=== PATIENT | male | born 1940 | race Caucasian/White ===

== ENCOUNTER 2022-02-02 08:00 | Outpatient (CLI) | payer MEDICARE, SELFPAY ==
[2022-02-02 08:12] LABS: Hematocrit 41.2 % (37.0-53.0); Hemoglobin* 13.5 gm/dL (13.5-17.5); Mean Corpuscular HGB Conc 33 gm/dL (32-36); Mean Corpuscular Hemoglobin 29 pg (26-34); Mean Corpuscular Volume 89 fL (80-100); Platelet Count* 160 K/uL (140-440); Red Blood Count 4.61 m/uL (4.30-5.90); White Blood Count* 2.22 K/uL (4.50-11.00)
[2022-02-02 08:32] LABS: Slide Review Reflex No
[2022-02-02 13:39] LABS: Albumin* 3.7 g/dL (3.3-5.0)
[2022-02-02 13:40] LABS: Chloride* 108 mmol/L (96-114); Potassium* 4.3 mmol/L (3.6-5.1); Sodium* 139 mmol/L (135-149)
[2022-02-02 13:42] LABS: Bilirubin Total* 1.4 mg/dL (0.1-1.5); Carbon Dioxide* 27 mmol/L (20-32); Cholesterol* 205 mg/dL (90-199); Estimated Glomerular Filt Rate 75 ml/min; Total Protein* 6.4 g/dL (6.0-8.3)
[2022-02-02 13:43] LABS: Alanine Aminotransferase* 16 U/L (4-50); Alkaline Phosphatase* 57 U/L (40-150); Aspartate Amino Transferase* 22 U/L (12-35); Blood Urea Nitrogen* 21 mg/dL (7-30); Calcium* 9.4 mg/dL (8.4-10.6); Glucose* 105 mg/dL (60-115); HDL Cholesterol* 67 mg/dL (>=40); LDL Cholesterol Calculated 126 mg/dL (<100); Triglycerides* 58 mg/dL (40-149)
== END 2022-02-02 08:01 | disposition home or self-care (01) ==
PROVIDERS: PCP Family Medicine; Visit Provider Family Medicine
DX: Z00.00 Encounter for general adult medical examination without abnormal findings (principal); E78.5 Hyperlipidemia, unspecified; D72.819 Decreased white blood cell count, unspecified
CPT/HCPCS: 80053; 80061; 85027

== ENCOUNTER 2023-02-06 10:11 | Outpatient (CLI) | payer MEDICARE, SELFPAY | END 2023-02-06 10:12 | disposition home or self-care (01) | LOC: NFLDREF 02-07 15:12 | PROVIDERS: PCP Family Medicine; Referring Provider Family Medicine; Visit Provider Family Medicine | DX: Z00.00 Encounter for general adult medical examination without abnormal findings (principal); E78.5 Hyperlipidemia, unspecified; D72.819 Decreased white blood cell count, unspecified | CPT/HCPCS: 80053; 80061 ==

== ENCOUNTER 2023-03-27 16:26 | Outpatient (CLI) | payer MEDICARE, SELFPAY | END 2023-03-27 16:27 | disposition home or self-care (01) | LOC: LKVREF 16:30 | PROVIDERS: PCP Family Medicine; Visit Provider Family Medicine | DX: I48.91 Unspecified atrial fibrillation (principal) | CPT/HCPCS: 84443 ==

== ENCOUNTER 2023-04-24 08:45 | Outpatient (CLI) | payer MEDICARE, SELFPAY ==
[2023-04-24] MEDS: REGADENOSON 0.4 MG/5 ML SYRINGE IVP (10:25)
[2023-04-24] MEDS: SODIUM CHLORIDE 0.9 % (FLUSH) 10 ML SYRINGE IVF (10:25)
[2023-04-24 10:40] VITALS: BP 132/70; PULSE 91
--- NOTE | 2023-04-24 12:10 | W.PM.STED ---
Stress Test Note Date Date of test: 04/24/23 Providers Primary care provider: Quan Christian Stress test physician: Jose R Jiménez Stress Test Note Stress test ordered: Lexiscan Indication for test: New onset atrial fibrillation Stress test medicine: Lexiscan Results discussion: Patient is a very nice 83-year-old gentleman who presents for the above test. As ordered discussion the risks benefits side effects is undertaken he would like to proceed pretest EKG shows atrial fibrillation with rate of 76. No acute ST wave changes are noted. Standard nonwalking Lexiscan is done over 5 minute. Subjectively he was asymptomatic objectively no acute ST wave changes there is no dysrhythmias noted. Impression: Negative electrographic portion of Lexiscan, patient remained in controlled atrial fibrillation Follow up suggested: Await nuclear images which will be read by Cardiology clinical correlation with this will be needed. Patient left this testing facility back to baseline normal.
== END 2023-04-24 08:46 | disposition home or self-care (01) ==
LOC: STRESS 08:46
PROVIDERS: PCP Family Medicine; Visit Provider Family Medicine
DX: I48.91 Unspecified atrial fibrillation (principal)
CPT/HCPCS: 78452; 93016; 93017; A9500; J2785

== ENCOUNTER 2023-04-30 14:47 | Outpatient (CLI) | payer MEDICARE, SELFPAY | END 2023-04-30 14:48 | disposition home or self-care (01) | LOC: RAD 14:49 | PROVIDERS: PCP Family Medicine; Visit Provider Family Medicine | DX: I48.91 Unspecified atrial fibrillation (principal); I51.7 Cardiomegaly; I35.1 Nonrheumatic aortic (valve) insufficiency; I34.0 Nonrheumatic mitral (valve) insufficiency; I07.1 Rheumatic tricuspid insufficiency | CPT/HCPCS: 93306 ==

== ENCOUNTER 2024-01-31 07:58 | Outpatient (CLI) | payer MEDICARE, SELFPAY ==
--- OUTSIDE RECORDS SUMMARY | 2024-02-01 07:21 | XMS_ITS | Referral Summary ---
Author Organization [facility] Address [address] [place] [id number] Care Team Providers Care Informatics Coordinator Name Role Phone Clinic, [facility] Primary Care Provider Allergies No known active allergies Medications Medication Sig Dispensed Refills Start Date End Date Status Finasteride (PROSCAR PO) Take 5 mg by mouth daily Active Pravastatin Sodium (PRAVACHOL PO) Take 10 mg by mouth daily Active Cyanocobalamin (B-12) 2500 MCG TABS Take 2,500 mcg by mouth daily Active Cholecalciferol (VITAMIN D3 PO) Take 2,000 Units by mouth 2 times daily Active NONFORMULARY Take 375 mg by mouth 2 times daily Active Nutritional Supplements (GLA 250 PO) Take 300 mg by mouth 3 times daily Active NONFORMULARY Take 300 mg by mouth daily Active docusate sodium (COLACE) 100 MG capsuleIndications:Po st-operative state Take two tablets twice daily until you have a bowel movement, then take as needed for constipation. 30 capsule 0 04/30/2014 Active ASPIRIN PO Take 81 mg by mouth Active Active Problems Problem Noted Date Diagnosed Date Post-operative state 04/29/2014 Immunizations Name Administration Dates Next Due Influenza (High Dose) 3 valent vaccine 4(),04/30/2014 Social History Tobacco Use Types Packs/Day Years Used Date Smoking Tobacco: Former Cigarettes Q uit: 04/29/1969 Smokeless Tobacco: Never Alcohol Use Standard Drinks/Week Comments Yes 0 (1 standard drink = 0.6 oz pur e alcohol) occasional Adolescent Education Answer Date Record ed Getting School Help Needed Not on file 04/17 Sex and Gender Information Value Date Recorded Sex Assigned at Not on file Gender Identity Not on file Sexual Orientation Not on file Last Filed Vital Signs Vital Sign Reading Time Taken Comments Blood Pressure 130/83 02/03/2019 1:00 PM CDT Pulse 62 02/03/2019 1:00 PM CDT Temperature 36.7 ??C (98.1 ??F) 02/03/2019 1 0:26 AM CDT Respiratory Rate 16 02/03/2019 1:22 PM CDT Oxygen Saturation 98% 02/03/2019 1:2 2 PM CDT Inhaled Oxygen Concentration - - Weight 80.6 kg (177 lb 11.1 oz) 05/02/2014 7:00 AM CDT standing wt Height - - Body Mass Index - - Plan of Treatment Not on file Advance Directives For more information, please contact: [phone] * Full Code (Latest Code Status on File) Date Activated Date Inactivated Comments 04/30/2014 3:50 PM 02/03/2019 10:21 AM * Full Code Date Activated Date Inactivated Comments 04/29/2014 2:34 PM 04/30/2014 3:50 PM Care Teams Informatics Coordinator Relationship Specialty Start Date End Date [facility], [facility] [address] [place] [address] PCP - General 09/28/15
--- OUTSIDE RECORDS SUMMARY | 2024-02-01 07:21 | XMS_ITS | Clinical Summary ---
Author Organization [facility] Address [address] [place] [id number] Care Team Providers Care Checking Department Supervisor Name Role Phone Clinic, [facility] Primary Care Provider Allergies No known active [...] Influenza (High Dose) 3 valent vaccine 4(),04/30/2014 Family History Medical History Relation Comments Colon Cancer No family hx of Social History Tobacco Use Types Packs/Day Years [...] Advance Directives For more information, please contact: [phone] * Full Code (Latest Code Status on File) Date Activated Date Inactivated Comments 04/30/2014 3:50 PM 02/03/2019 10:21 AM * Full Code Date Activated Date Inactivated Comments 04/29/2014 2:34 PM 04/30/2014 3:50 PM Care Teams Checking Department Supervisor Relationship Specialty Start Date End Date Clinic, [facility] [address] [place] [address] PCP - General 09/28/15
--- OUTSIDE RECORDS SUMMARY | 2024-02-01 07:21 | XMS_ITS | Clinical Summary ---
Author Organization [facility] Address [place], [place] [address] Care Team Providers Care Youth Pastor Name Role Phone Quan Christian MD Primary Care Provider [phone] Active Problems Problem Noted Date Diagnosed Date Mixed hyperlipidemia 06/15/2023 HTN (hypertension) 06/15/2023 CASIE (obstructive sleep apnea) 06/15/2023 Permanent atrial fibrillation 06/15/2023 Encounters Date Type Department Care Team Description 01/22/2024 4:45 PM CDT - 01/22/2024 11:59 PM CDT Hospital Encounter [address] [place] [address] Cj Ribeiro MD Other nonspecific abnormal finding of lung field 01/22/2024 Travel 01/16/2024 Orders Only [address] [place] [address] Cj Ribeiro MD 1 scan: (1-Ord) diag order 01/08/2024 10:14 AM CDT - 01/08/2024 11:59 PM CDT Hospital Encounter [address] [place] [address] Cj Ribeiro MD Hx of malignant neoplasm of kidney; History of kidney cancer 01/08/2024 Travel from Last 3 Months Social History Tobacco Use Types Packs/Day Years Used Date Smoking Tobacco: Never Assessed Social Connections Answer Date Recorded Frequency of Communication with Friends and Fami ly Not on file 06/15/2023 Sex and Gender Information Value Date Recorded Sex Assigned at Not on file Gender Identity Not on file Sexual Orientation Not on file Plan of Treatment Upcoming Encounters Date Type Department Care Team (Late st Contact Info) Description 03/18/2024 3:00 PM CDT Office Visit [facility] [address] [place] [id number] Milena Arguello PA [address] [facility] [address] [place] [address] Health Maintenance Due Date Last Done Comments Tdap 1950 Depression screening for age 12+ 1951 BMI (ht and wt on same day) for age 18+ 1957 Tetanus booster 1959 Zoster (shingles) series for age 50+ (1 of 2) 1989 Medicare Wellness for age 65+ 01/21/2004 Pneumococcal series for age 65+ (1 of 1 - PCV) 01/21/2004 COVID-19 vaccine series ( season) 2023 07/10/2023, 05/12/2022, 11/29/2021 Influenza for age 65+ 03/02/2024 Procedures Procedure Name Priority Date/Time Associated Diagnosis Comments CT CHEST W Routine 01/22/2024 5:17 PM CDT Other nonspecific abnormal finding of lung field CREATININE,ISTAT Timed 01/22/2024 5:04 PM CDT US RENAL AND BLADDER COMPLETE Routine 01/08/2024 11:06 AM CDT Hx of malignant neoplasm of kidney XR CHEST 2 VIEWS PA AND LATERAL Routine 01/08/2024 10:20 AM CDT History of kidney cancer from Last 3 Months Results * CT CHEST W (01/22/2024 5:17 PM CDT) Anatomical Region Laterality Modality CHEST, THORAX, HEART Computed To mography 01/23/2024 6:24 AM CDT Impressions 01/23/2024 6:24 AM CDT 1. Bandlike opacity in the superior aspect of the right lower lobe likely reflecting area of scarring which could be followed up in 3-6 months to assure stability. Please note that all CT scans at this facility use dose modulation, iterative reconstruction, and/or weight-based dosing when appropriate to reduce radiation dose to as low as reasonably achievable. Dictated by Azeb Ignacio MD @ 01/23/2024 6:24:16 AM (Electronically Signed) Narrative 01/23/2024 6:24 AM CDT For Patients: ??As a result of the Cures Act, medical imaging exams and procedure reports are released immediately into your electronic medical record. ??You may view this report before your referring provider. ??If you have questions, please contact your health care provider. INDICATION: Abnormal finding of lung field TECHNIQUE: CT chest with 80 mL Omnipaque 350 COMPARISON: Chest x-ray 01/08/2024 FINDINGS: Lungs and pleura: Apical fibrotic changes. Right lower lobe posterior bandlike opacity probably reflects an area of scarring this could be followed up to assure stability there is spacer dependent atelectasis Heart and vasculature: Heart size is normal. Thoracic aorta and pulmonary artery are normal in caliber. Lymph nodes/mediastinum: No mediastinal, hilar, or axillary adenopathy. Chest wall: No masses. Upper abdomen: Nonobstructing left renal calculus probable left parapelvic cysts Bones: Unremarkable for age. Procedure Note Azeb Ignacio MD - 01/23/2024 For Patients: As a result of the Cures Act, medical imagingexams and procedure reports are released immediately into your electronicmedical record. You may view this report before your referring provider.If you have questions, please contact your health care provider. INDICATION: Abnormal finding of lung field TECHNIQUE: CT chest with 80 mL Omnipaque 350 COMPARISON: Chest x-ray 01/08/2024 FINDINGS: Lungs and pleura: Apical fibrotic changes. Right lower lobe posteriorbandlike opacity probably reflects an area of scarring this could befollowed up to assure stability there is spacer dependent atelectasis Heart and vasculature: Heart size is normal. Thoracic aorta and pulmonaryartery are normal in caliber. Lymph nodes/mediastinum: No mediastinal, hilar, or axillary adenopathy. Chest wall: No masses. Upper abdomen: Nonobstructing left renal calculus probable left parapelviccysts Bones: Unremarkable for age. IMPRESSION: 1. Bandlike opacity in the superior aspect of the right lower lobe likelyreflecting area of scarring which could be followed up in 3-6 months toassure stability. Please note that all CT scans at this facility use dose modulation,iterative reconstruction, and/or weight-based dosing when appropriate toreduce radiation dose to as low as reasonably achievable. Dictated by Azeb Ignacio MD @ 01/23/2024 6:24:16 AM (Electronically Signed) Cj Ribeiro MD CT * (ABNORMAL) CREATININE,ISTAT (01/22/2024 5:04 PM CDT) CREATININE, POCT 1.20(H) 0.57 - 1.11 mg/dL 01/22/2024 5:08 PM CDT [facility] Comment:Caution: Patients ta brandy Hydroxyurea have falsely increased iStat Creatinine results. Verify creatinine results ordering a Creatinine (86762.2) eGFR 59(L) >90 mL/min/1.7 3m2 01/22/2024 5:08 PM CDT [facility] Comment:As of 2021, eG FR is calculated by the CKD-EPI creatinine equation without race adjustment. eGFR can be influenced by muscle mass, exercise, and diet. The reported eGFR is an estimation only and is only applicable if the renal function is stable. Blood BLOOD SPECIMEN / Unknown 01/22/2024 5:04 PM CDT 01/22/2024 5:08 PM CDT Cj Ribeiro MD CHEMISTRY [facility] [address] [place] [address] * US RENAL AND BLADDER COMPLETE (01/08/2024 11:06 AM CDT) Anatomical Region Laterality Modality Abdomen, AORTA, KIDNEYS Ultrasou nd 01/08/2024 4:31 PM CDT Impressions 01/08/2024 4:31 PM CDT 1. Enlarged prostate gland with no hydronephrosis or suspicious solid right or left renal masses. 2. Simple appearing cortical cyst at superior margin of left kidney, measuring 1.6 cm. 3. Nonobstructing right nephrolithiasis. Dictated by Vinayak Min MD @ Dec ??9 2023 ??4:31PM (Electronically Signed) [email or web address] Narrative 01/08/2024 4:31 PM CDT For Patients: ??As a result of the Cures Act, medical imaging exams and procedure reports are released immediately into your electronic medical record. ??You may view this report before your referring provider. ??If you have questions, please contact your health care provider. INDICATION: History of malignant neoplasm of kidney. TECHNIQUE: Ultrasound renal bilateral. Haque-scale and color Doppler sonographic images were acquired of the kidneys and urinary bladder. COMPARISON: 01/01/2023, 01/04/2022 FINDINGS: Right kidney: Length 9.7 cm. Normal echotexture and cortex noted. No mass or hydronephrosis. Multiple echogenic calculi at lower pole of right kidney, measuring 4-8 mm in size. Left kidney: Length 10.7 cm. Normal echotexture and cortex noted. No masses, stones, or hydronephrosis seen. Small cortical cyst at superior margin of left kidney, with grossly simple features measuring up to 1.6 cm. Bladder: Bladder wall unremarkable. Prevoid bladder volume measures 86 mL. Postvoid bladder volume 5 mL. Ureteral jets are not visualized. Enlarged prostate gland noted. Procedure Note Vinayak Min MD - 01/08/2024 For Patients: As a result of the Cures Act, medical imagingexams and procedure reports are released immediately into your electronicmedical record. You may view this report before your referring provider.If you have questions, please contact your health care provider. INDICATION: History of malignant neoplasm of kidney. TECHNIQUE: Ultrasound renal bilateral. Haque-scale and color Doppler sonographicimages were acquired of the kidneys and urinary bladder. COMPARISON: 01/01/2023, 01/04/2022 FINDINGS: Right kidney: Length 9.7 cm. Normal echotexture and cortex noted. No massor hydronephrosis. Multiple echogenic calculi at lower pole of rightkidney, measuring 4-8 mm in size. Left kidney: Length 10.7 cm. Normal echotexture and cortex noted. Nomasses, stones, or hydronephrosis seen. Small cortical cyst at superiormargin of left kidney, with grossly simple features measuring up to 1.6cm. Bladder: Bladder wall unremarkable. Prevoid bladder volume measures 86 mL.Postvoid bladder volume 5 mL. Ureteral jets are not visualized. Enlargedprostate gland noted. IMPRESSION: 1. Enlarged prostate gland with no hydronephrosis or suspicious solidright or left renal masses. 2. Simple appearing cortical cyst at superior margin of left kidney,measuring 1.6 cm. 3. Nonobstructing right nephrolithiasis. Dictated by Vinayak Min MD @ Jan 08 2024 4:31PM (Electronically Signed) [email or web address] Cj Ribeiro MD US * XR CHEST 2 VIEWS PA AND LATERAL (01/08/2024 10:20 AM CDT) Anatomical Region Laterality Modality CHEST, THORAX, Lung, HEART Digit al Radiography 01/08/2024 12:5 9 PM CDT Impressions 01/08/2024 12:59 PM CDT 1. Possible new nodular density in the right upper lung zone. Recommend chest CT evaluation to exclude pulmonary metastatic disease with history of kidney cancer. Dictated by Vinayak Min MD @ Dec ??2023 12:59PM (Electronically Signed) [email or web address] Narrative 01/08/2024 12:59 PM CDT For Patients: ??As a result of the 21st Century Cures Act, medical imaging exams and procedure reports are released immediately into your electronic medical record. ??You may view this report before your referring provider. ??If you have questions, please contact your health care provider. INDICATION: History of kidney cancer. Follow-up. TECHNIQUE: Chest radiograph 2 views COMPARISON: 01/01/2023 FINDINGS: Cardiovascular and mediastinum: Heart size and mediastinal contours are stable. Lungs and pleural spaces: New indeterminate nodular density in the right upper lung zone. Left hemithorax remains clear. No pleural effusions. Lungs are hyperinflated. Bones and soft tissues: No significant findings. Procedure Note Vinayak Min MD - 01/08/2024 For Patients: As a result of the Cures Act, medical imagingexams and procedure reports are released immediately into your electronicmedical record. You may view this report before your referring provider.If you have questions, please contact your health care provider. INDICATION: History of kidney cancer. Follow-up. TECHNIQUE: Chest radiograph 2 views COMPARISON: 01/01/2023 FINDINGS: Cardiovascular and mediastinum: Heart size and mediastinal contours arestable. Lungs and pleural spaces: New indeterminate nodular density in the rightupper lung zone. Left hemithorax remains clear. No pleural effusions.Lungs are hyperinflated. Bones and soft tissues: No significant findings. IMPRESSION: 1. Possible new nodular density in the right upper lung zone. Recommendchest CT evaluation to exclude pulmonary metastatic disease with historyof kidney cancer. Dictated by Vinayak Min MD @ Jan 08 2024 12:59PM (Electronically Signed) [email or web address] Cj Ribeiro MD GENERAL IMAGING from Last 3 Months Care Teams Youth Pastor Relationship Specialty Start Date End Date Quan Christian MD [address] [place] [address] PCP - General Family Practice 05/06/21
== END 2024-01-31 07:59 | disposition home or self-care (01) ==
PROVIDERS: PCP Family Medicine; Referring Provider Family Medicine; Visit Provider Family Medicine
DX: N40.0 Benign prostatic hyperplasia without lower urinary tract symptoms (principal); Z13.1 Encounter for screening for diabetes mellitus; Z13.6 Encounter for screening for cardiovascular disorders; Z12.5 Encounter for screening for malignant neoplasm of prostate
CPT/HCPCS: 80053; 80061; G0103

== ENCOUNTER 2024-03-10 13:04 | Emergency (ER) | payer MEDICARE, SELFPAY ==
[2024-03-10 13:12] VITALS: BP 159/85; PULSE 89; RESP 12; TEMP 36.6; O2SAT 96
--- NOTE | 2024-03-10 13:48 | ED_ITS ---
HPI - General Adult General Date Seen: 03/10/24 Chief complaint: Urogenital Problems, Male Stated complaint: abdominal pain/Urinary complaints Time Seen by Provider: 03/10/24 13:08 Source: patient Mode of arrival: ambulatory Limitations: no limitations History of Present Illness HPI narrative: Patient is an 84-year-old male who presents due to difficulty emptying his bladder today. He does have a history of an enlarged prostate, currently is on tamsulosin and finished steroid, has had 1 previous event of inability to void requiring catheter that was a number years ago. He notes some pain over his bladder, does not have any dysuria per se. No fevers or chills, nausea or vomiting. Has had a little bit of diarrhea today and is actually scheduled to start a colonoscopy prep at 4:00 p.m. today so he has been on low-fiber diet with minimal to eat since yesterday. Denies hematuria. He is not anticoagulated aside from an aspirin. Related Data Home Medications ?Medication ?Instructions ?Recorded ?Confirmed cholecalciferol (vitamin D3) 25 25 mcg PO DAILY 02/07/22 03/10/24 mcg (1,000 unit) tablet coenzyme Q10 100 mg capsule 100 mg PO DAILY 02/07/22 03/10/24 cyanocobalamin (vitamin B-12) 500 mcg PO DAILY 02/07/22 03/10/24 1,000 mcg tablet finasteride 5 mg tablet 5 mg PO DAILY 02/07/22 03/10/24 tamsulosin 0.4 mg capsule 0.4 mg PO DAILY 02/07/22 03/10/24 aspirin 81 mg tablet,delayed 162 mg PO QDAY 02/04/24 03/10/24 release fluticasone propionate 50 1 spray intranasal QDAY 02/04/24 03/10/24 mcg/actuation nasal spray,suspension (Flonase Allergy Relief) Previous Rx's ?Medication ?Instructions ?Recorded diclofenac sodium 1 % topical gel 2 g topical QID #100 grams 07/09/23 (Arthritis Pain (diclofenac)) peg 3350-electrolytes 236 4,000 ml PO DIRECTED #4,000 mL 02/04/24 gram-22.74 gram-6.74 gram-5.86 gram solution (Golytely) pravastatin 40 mg tablet 10 mg (1/4 x 40 mg) PO .Bedtime 02/04/24 #23 tabs Allergies Allergy/AdvReac Type Severity Reaction Status Date / Time simvastatin AdvReac Mild Neck pain Verified 02/04/24 10:04 Review of Systems Status of ROS: Reports: 10 or more systems reviewed and unremarkable except as noted in History and below [facility] Medical History Malignant neoplasm of right kidney ?C64.1 - Malignant neoplasm of right kidney, except renal pelvis (ICD-10) Right upper lobe pulmonary nodule ?R91.1 - Solitary pulmonary nodule (ICD-10) Colon polyps ?K63.5 - Polyp of colon (ICD-10) Atrial fibrillation ?I48.91 - Unspecified atrial fibrillation (ICD-10) History of paroxysmal atrial tachycardia ?Z86.79 - Personal history of other diseases of the circulatory system (ICD- 10) Surgical History Status post tonsillectomy ?Z90.89 - Acquired absence of other organs (ICD-10) Status post hernia repair ?Z98.890 - Other specified postprocedural states (ICD-10) ?Z87.19 - Personal history of other diseases of the digestive system (ICD-10) History of kidney surgery ?Z98.890 - Other specified postprocedural states (ICD-10) History of colonoscopy with polypectomy ?Z98.890 - Other specified postprocedural states (ICD-10) ?Z86.010 - Personal history of colonic polyps (ICD-10) Family History Maternal Grandmother Diabetes Mother Eye disease Brother Eye disease Father Heart disease Social History Smoking Status: Never smoker Little interest or pleasure in doing things: not at all Feeling down, depressed, or hopeless: not at all Exam Narrative: Exam Narrative: Vital signs reviewed In general, alert, well-appearing male. Abdomen: Soft, mild tenderness over the bladder without rebound guarding or rigidity. Back: No CVA tenderness. Extremities: Well perfused, no significant edema. Const: Vital Signs, click to edit/add: Vital Signs - 24 hr 03/10/24 13:12 Temperature 97.8 F Pulse Rate [Pulse Oximeter] 89 Respiratory Rate 12 Blood Pressure [Le ft Upper Arm] 159/85 H Pulse Oximetry 96 Oxygen Delivery Me thod Room Air Documenting provider has reviewed patient's vital signs: yes Course Course ED Course: Bladder scan was done and showed just under 500 mL. He did try to void here, was unable to do so and we will go ahead and place a Valderrama catheter. Best practice probably to have him just leave that in for now, clinic follow-up with a trial of void after his colonoscopy. About 600 mL of urine out, patient feels improved. Urine is notable for 0-2 red cells, 0-2 white cells, no bacteria. He will keep the catheter in place for now. He wondered if he should postpone his colonoscopy, which I have told him is really up to him, if he feels that it is just too much going on this week and wants to postpone he can but that medically it is just fine to continue as planned. He has a urologist who he will touch base with this week, trial of void later this week with Urology or primary care. Vital Signs Vital signs: Initial Vital Signs Temperature 97.8 F 03/10/24 13:12 Temperature Source Temporal Artery Scan 03/10/24 13:12 Pulse Rate 89 03/10/24 13:12 Pulse Rhythm Irregular 03/10/24 13:12 Respiratory Rate 12 03/10/24 13:12 Blood Pressure 159/85 H 03/10/24 13:12 Blood Pressure Mean 109 H 03/10/24 13:12 Blood Pressure Position Supine 03/10/24 13:12 Pulse Oximetry 96 03/10/24 13:12 Oxygen Delivery Method Room Air 03/10/24 13:12 Vital Signs Temperature 97.8 F 03/10/24 13:12 Pulse Rate 89 03/10/24 13:12 Respiratory Rate 12 03/10/24 13:12 Blood Pressure 159/85 H 03/10/24 13:12 Pulse Oximetry 96 03/10/24 13:12 Oxygen Delivery Method Room Air 03/10/24 13:12 Temperature 97.8 F 03/10/24 13:12 Pulse Rate 89 03/10/24 13:12 Respiratory Rate 12 03/10/24 13:12 Blood Pressure 159/85 H 03/10/24 13:12 Pulse Oximetry 96 03/10/24 13:12 Oxygen Delivery Method Room Air 03/10/24 13:12 Medical Decision Making Lab Data Labs: Lab Results 03/10/24 Range/Units 13:55 Urine Color Yellow (Yellow) Urine Appearance Clear (Clear) Urine pH 5.5 (5.0-8.5) Ur Specific [place] 1.010 (1.000-1.030) Urine Protein Negative (Negative) Urine Glucose (UA) Negative (Negative) Urine Ketones Trace A (Negative) Urine Blood 1+ A (Negative) Urine Nitrite Negative (Negative) Urine Bilirubin Negative (Negative) Urine Urobilinogen 0.2 (0.2-1.0) Ur Leukocyte Esterase Negative (Negative) Urine RBC 0-2 (0-2) Urine WBC 0-2 (0-5) Ur Squamous Epith Cells None (None-Few) Urine Bacteria None (None) Discharge Plan Discharge Clinical Impression: Acute retention of urine Patient Disposition: Home, Self-Care Condition: Improved Instructions: Urinary Retention in Men (ED) Additional Instructions: I would recommend leaving catheter in place through the end of this week, you can be seen either by your urologist or your regular doctor for a trial of void at that time. Medically, there is no reason that you cannot have your colonoscopy tomorrow as planned, but you can certainly postpone it if you like. Prescriptions: No Action cholecalciferol (vitamin D3) 25 mcg (1,000 unit) tablet 25 mcg PO DAILY coenzyme Q10 100 mg capsule 100 mg PO DAILY finasteride 5 mg tablet 5 mg PO DAILY tamsulosin 0.4 mg capsule 0.4 mg PO DAILY cyanocobalamin (vitamin B-12) 1,000 mcg tablet 500 mcg PO DAILY diclofenac sodium [Arthritis Pain (diclofenac)] 1 % gel 2 g topical QID Qty: 100 1RF Rx Instructions: apply to single elbow, wrist or hand; for hand includes palm/fingers/back of hand aspirin 81 mg tablet,delayed release (DR/EC) 162 mg PO QDAY fluticasone propionate [Flonase Allergy Relief] 50 mcg/actuation spray,suspension 1 spray intranasal QDAY Rx Instructions: administer into each nostril peg 3350-electrolytes [Golytely] 236-22.74-6.74 -5.86 gram recon soln 4,000 ml PO DIRECTED Qty: 4000 0RF Rx Instructions: 1 day prior to scopes, between 4 and 6 p.m., drink 8 oz glass every 15 minutes until half a gallon is gone. 6 hours prior to procedure, drink 8 oz glass every 15 minutes until second half gallon is gone. pravastatin 40 mg tablet 10 mg PO .Bedtime Qty: 23 4RF Rx Instructions: Take 1/4 tablet every night before going to bed. Follow Up/Referrals: Quan Christian MD [Primary Care Provider] - Stand Alone Forms: [employer] Info Instructions
[2024-03-10 14:03] LABS: Appearance Urine Clear (Clear); Bilirubin Urine Negative (Negative); Color Urine Yellow (Yellow); Glucose Urine Negative (Negative); Ketones Urine Trace (Negative); Leukocyte Esterase Urine Negative (Negative); Nitrite Urine Negative (Negative); Protein Urine Negative (Negative); Urobilinogen Urine 0.2 (0.2-1.0); pH Urine 5.5 (5.0-8.5)
--- OUTSIDE RECORDS SUMMARY | 2024-03-10 14:05 | XMS_ITS | Clinical Summary ---
Author Organization [employer] [facility] Address [place], [place] [address] Care Team Providers Care Dental Office Coordinator Name Role Phone Quan Christian MD Primary Care Provider Active Problems Problem Noted Date Diagnosed Date Mixed hyperlipidemia 06/15/2023 HTN (hypertension) 06/15/2023 CASIE (obstructive sleep apnea) 06/15/2023 Permanent atrial fibrillation 06/15/2023 Encounters Date Type Department Care Team Description 02/01/2024 Orders Only [address] [address] Cj Ribeiro MD 1 scan: (1-Ord) diag order 01/22/2024 4:45 PM CDT - 01/22/2024 11:59 PM CDT Hospital Encounter [address] [address] Cj Ribeiro MD Other nonspecific abnormal finding of lung field 01/22/2024 Travel 01/16/2024 Orders Only [address] [address] Cj Ribeiro MD 1 scan: (1-Ord) diag order 01/08/2024 10:14 AM CDT - 01/08/2024 11:59 PM CDT Hospital Encounter [address] [address] Cj Ribeiro MD Hx of malignant neoplasm [...] Description 03/18/2024 3:00 PM CDT Office Visit [facility] [address] [place] [phone] Milena Arguello PA [address] [place], [place] [phone] 07/08/2024 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 Appointment [facility] [address] [place] [address] Health Maintenance Due Date Last Done Comments Tdap 1950 Depression screening for age 12+ 1951 BMI (ht and wt on same day) for age 18+ 1957 Tetanus booster 1959 Zoster (shingles) series for age 50+ (1 of 2) 1989 RSV vaccine for adults or pr egnancy (1 - 1-dose 60+ series) 1999 Medicare Wellness for age 65+ 01/21/2004 Pneumococcal series for age 65+ (1 of 1 - PCV) 01/21/2004 COVID-19 vaccine series ( season) 2024 07/10/2023, 05/12/2022, 11/29/2021 Influenza for age 65+ [...] 0.57 - 1.11 mg/dL 01/22/2024 5:08 PM T [facility] Comment:Caution: Patients ta brandy Hydroxyurea have falsely increased iStat Creatinine results. Verify creatinine results ordering a Creatinine (80168.2) eGFR 59(L) >90 mL/min/1.7 3m2 01/22/2024 5:08 PM [facility] Comment:As of 2021, eG FR is calculated by the CKD-EPI creatinine equation without race adjustment. eGFR can be influenced by muscle mass, exercise, and diet. The reported eGFR is an estimation only and is only applicable if the renal function is stable. Blood BLOOD SPECIMEN / Unknown 01/22/2024 5:04 PM CDT 01/22/2024 5:08 PM CDT Cj Ribeiro MD CHEMISTRY [facility] [address] [place] [address] * US RENAL AND BLADDER COMPLETE (01/08/2024 [...] @ Dec ??9 2023 ??4:31PM (Electronically Signed) [email or web address] ([email or web address]) Narrative 01/08/2024 4:31 PM CDT For Patients: ??As a result of the Century Cures Act, medical imaging exams and [...] For Patients: As a result of the 21st Century Cures Act, medical imagingexams and procedure reports [...] @ Jan 08 2024 4:31PM (Electronically Signed) [email or web address] ([email or web address]) Cj Ribeiro MD US * XR CHEST [...] MD @ Dec ??2023 12:59PM (Electronically Signed) [email or web address] Narrative 01/08/2024 12:59 PM CDT For Patients: [...] @ Jan 08 2024 12:59PM (Electronically Signed) [email or web address] Cj Ribeiro MD GENERAL IMAGING from Last 3 Months Care Teams Dental Office Coordinator Relationship Specialty Start Date End Date Quan Christian MD [id number] [place], [place] [phone] PCP - General Family Practice 05/06/21
--- OUTSIDE RECORDS SUMMARY | 2024-03-10 14:05 | XMS_ITS | Data Portability ---
Author Organization [place] - [facility] Address [address] [place] [address] Care Team Providers Care Grade Tamper Name Role Phone [facility] Primary Care Provider Assessment No assessment recorded. Plan of Treatment Reminders Order Date Submit Date Provider Last Modified By Organization Details Last Modified Time Details Appointments None recorded. Lab urinalysis, dipstick 2020 021 [email or web address] [facility], [address], [address], [place], [address], 1 10:39:59 urinalysis, dipstick 2021 022 [email or web address] [facility], [address], [address], [place], [address], 2 12:03:45 Referral None recorded. Procedures None recorded. Surgeries None recorded. Imaging None recorded. Medication Orders finasteride 5 mg tablet 2020 021 [facility]5308, [address] [place], [address], 1 10:57:45 tamsulosin 0.4 mg capsule 2020 021 [facility] #5308, [address] [place], [address], 1 10:57:45 tamsulosin 0.4 mg capsule 2021 022 [facility]56, [address] [place], [address], 2 16:05:19 finasteride 5 mg tablet 2021 022 [facility], [address] [place], [address], 2 16:05:57 finasteride 5 mg tablet 2022 023 [facility], [address] [place], [address], 3 11:59:13 tamsulosin 0.4 mg capsule 2023 024 [facility] [address] [place], [address], 4 11:43:30 finasteride 5 mg tablet 2023 024 [facility]56, [address] [place], [address], 4 11:43:32 Patient TargetsNo targets recorded. Patient Instructions Encounter Date Encounter Id Patient Instructions Last Modified By Organization Details Last Modified Time 03/25/2020 [id number] doing well, voiding OK on tamsulosin and finasteride, OK to refill when needs Rx's renewed. plan recheck 1 year with CXR and renal U/S. [email or web address] Not available 03/25/2020 11:53:13 01/13/2021 [id number] no sign of recurrence. continue finasteride and tamsulosin, plan rtc 1 year with renal U/S and PA/lateral CXR. [email or web address] Not available 01/13/2021 10:58:44 01/10/2022 [id number] refill tamsulosi n and finasteride sent. plan recheck 1 year with CXR and renal U/S. [email or web address] Not available 01/10/2022 12:16:44 01/11/2023 [id number] refill finasteride sent, OK on tamsulosin for now. plan rtc 1 year with CXR and renal U/S Not available 01/11/2023 11:59:51 01/15/2024 [id number] will set up for CT chest without and with, call with report, refill finasteride and tamsulosin [email or web address] Not available 01/15/2024 11:44:34 Reason for Referral None Reported. Results Created Date Observation Date Name Description Value Unit Range Abnormal Flag Note LastModifiedBy Organization Detail LastModifiedTime 01/13/2021 urina lysis , dipst ick pH-Status 5.5 Not Available [address], [place], [place], [address], 01/13/2021 10:34:10 01/11/20 22 01/10/2022 urina lysis , dipst ick Color-Status Yellow Not Available [address], [place], [place], [address], 01/10/2022 12:02:52 01/11/20 22 01/10/2022 urina lysis , dipst ick Protein-Stat us 7.0 Not Available [address], [place], [place], [address], 01/10/2022 12:02:52 03/17/20 20 XR, chest , 2 view No observ ation record ed. [email or web address] Not Available 03/19 13:25:40 01/07/20 21 01/06/2021 XR, chest , 2 view No observ ation record ed. [email or web address] [facility] [address] [place] [address], [place], [address], 01/06/2021 13:43:06 01/07/20 21 01/06/2021 US, renal No observ ation record ed. [email or web address] Not Available 01/07 09:35:07 01/10/20 22 01/04/2022 US, renal No observ ation record ed. [email or web address] [facility] [address] [place], [address], 01/09/2022 12:48:50 01/10/20 22 01/04/2022 XR, chest , 2 view No observ ation record ed. [email or web address] [facility] [address] [facility] [place], [address], 01/09/2022 12:48:51 01/02/20 23 01/01/2023 XR, chest , 2 view No observ ation record ed. [email or web address] [facility] [address] [facility] [place], [address], 01/04/2023 09:59:32 01/02/20 23 01/01/2023 US, renal No observ ation record ed. [email or web address] [facility] [address] [facility] [place], [address], 01/04/2023 09:59:33 01/08/20 24 01/08/2024 XR, chest , 2 view No observ ation record ed. [facility] [address] [facility] [place] [place], [address], 01/08/2024 15:03:59 01/08/20 24 01/08/2024 US, renal No observ ation record ed. [facility] [address] [facility] [place], [address], 01/10/2024 09:31:12 01/29/20 24 01/22/2024 CT, chest , w/wo contr ast No observ ation record ed. [email or web address] [facility] [address] [facility] [place], [address], 02/01/2024 09:53:02 Result Notes None recorded. 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 Not Available [facility] 0 02:03:40 Nocturia 716090073 Active 2013 788.43 : NOCTURIA Not Available [facility] 0 02:03:40 Clinical finding Active 2017 N40.1 : Benign prostatic hyperplasi a with lower urinary tract symp Not Available [facility] 0 02:03:40 Urinary tract obstructi on 0410105 Active 2011 600.21 : HYPERPLASI A OF PROSTATE W/OBST Not Available [facility] 0 02:03:40 Benign prostatic hyperplas ia 503801972 Active 2011 600.21 : HYPERPLASI A OF PROSTATE W/OBST Not Available [facility] 0 02:03:40 Lower urinary tract symptoms 969421397 Active 2011 600.21 : HYPERPLASI A OF PROSTATE W/OBST Not Available [facility] 0 02:03:40 History of malignant neoplasm of kidney 100110026 Active 2017 Z85.528 : Personal history of other malignant neoplasm of kidney Not Available [facility] 0 02:03:40 Problem Notes None recorded. Procedures Surgical History Date Name Laterality Status Provider Name and Address Organization Details Recorded Time 4 Bladder Scan completed [place] [facility] 01/15/2024 11:27:44 Remove tonsils and adenoids completed [place] [facility] 03/25/2020 11:41:17 procedure on kidney completed [place] [facility] 03/25/2020 11:41:38 Imaging Results Imaging Date Name Status LastModified by [facility] Details LastModified Time 03/17/2020 XR, chest, 2 view completed [email or web address] Information not available 03/19/2020 13:25:40 01/06/2021 XR, chest, 2 view completed [email or web address] [facility] [address], [place], [address], 01/06/2021 13:43:06 01/06/2021 US, renal completed [email or web address] Information no t available 01/07/2021 09:35:07 01/04/2022 US, renal completed [email or web address] [facility] [address] [place], [place] [address], [address], 01/09/2022 12:48:50 01/04/2022 XR, chest, 2 view completed [email or web address] [facility] [address] [place] [address] [place], [address], 01/09/2022 12:48:51 01/01/2023 XR, chest, 2 view completed [email or web address] [address] [place], [address], 01/04/2023 09:59:32 01/01/2023 US, renal completed [email or web address] [address] [place], [address], 01/04/2023 09:59:33 01/08/2024 XR, chest, 2 view completed [address] [place], [address], 01/08/2024 15:03:59 01/08/2024 US, renal completed [address] [place], [address], 01/10/2024 09:31:12 01/22/2024 CT, chest, w/wo contrast [email or web address] [address] [place] [address] [place], [address], 02/01/2024 09:53:02 Procedure Notes None recorded. Medical Equipment None Reported. Allergies No known drug allergies Medications Name Sig Start Date Stop Date Status Note LastModified by Organization Details LastModified Time pravastatin 40 mg tablet TAKE 1/4 TABLET EVERY NIGHT BEFORE GOING TO BED. active Not Available Not Available No t Available prednisolon e acetate 1 % eye drops,suspe nsion INSTILL 1 DROP IN RIGHT EYE FOUR TIMES A DAY active Not Available Not Available No t Available tamsulosin 0.4 mg capsule TAKE 1 CAPSULE BY MOUTH EVERY DAY 2023 active Not Available Not Available Not Avai lable finasteride 5 mg tablet TAKE ONE TABLET BY MOUTH EVERY DAY active Not Available Not Available No t Available Vitamin C 01/11 completed Not Available Not Available Not Available aspirin 01/11 completed Not Available Not Available Not Available finasteride 01/13 completed Not Available Not Available Not Available CoQ-10 01/11 completed Not Available Not Available Not Available diclofenac 1 % topical gel APPLY 2 G TOPICALLY TO SINGLE ELBOW, WRIST, HAND (INCLUDES PALM/FING ERS/BACK OF HAND) 4 TIMES DAILY. active Not Available Not Available No t Available Vitamin D2 01/11 completed Not Available Not Available Not Available Flonase Allergy Relief active Not Available Not Available Not Available Shingrix (PF) 50 mcg/0.5 mL intramuscul ar suspension, kit 03/25 completed Not Available Not Available Not Available Vitals Date Recorded Body height Body mass index (BMI) Body weight Provider Name and Address Organization Details Last Updated DateTime 01/10/2022 185.42 cm 24.4 kg/m2 28452.59 g Cj Ribeiro MD [address], [place], [address], [facility] 01/10/2022 12:02:27 Date Recorded Body height Body mass index (BMI) Body weight Provider Name and Address Organization Details Last Updated DateTime 03/25/2020 187.96 cm 22.5 kg/m2 74067.66 g Florecita Castillo [facility] 03/25/2020 11:37:50 Date Recorded Body height Body mass index (BMI) Body weight Provider Name and Address Organization Details Last Updated DateTime 01/11/2023 185.42 cm 24.4 kg/m2 10665.59 g Evelia Dickens [email or web address] 01/11/2023 11:26:14 Date Recorded Body height Body mass index (BMI) Body weight Provider Name and Address Organization Details Last Updated DateTime 01/15/2024 185.42 cm 24.4 kg/m2 04378.59 g Milagros Jamesambrose [facility] 01/15/2024 11:21:11 Date Recorded Body height Body mass index (BMI) Body weight Provider Name and Address Organization Details Last Updated DateTime 01/13/2021 185.42 cm 24 kg/m2 78568.81 g Cj Ribeiro MD [address] [place] [address],[facility] [address], [place], [address] 01/13/2021 10:38:16 Social History Question Answer Notes LastModified by Organizat ion Details LastModified Time Tobacco Smoking Status Former Smoker quit 1968 [facility] 03/25/2020 11:40:20 What Is Your Level Of Alcohol Consumption? Occasional Information not available 03/25/2020 How Many Times Per Week Do You Consume Alcohol? 1-2 Times Per Week [email or web address] Information not available 01/11/2023 What Is Your Level Of Caffeine Consumption? None Information not available 03/25/2020 When Did You Quit Smoking? 16+yearssincel astcigarette [email or web address] Information not available 01/11/2023 What Was The Date Of Your Most Recent Tobacco Screening? 01/15/2024 Information not available 01/15/2024 Have You Ever Been Counseled For Unhealthy Alcohol Use? No [email or web address] Information not available 01/11/2023 Do You Use Any Illicit Or Recreational Drugs? No [email or web address] Information not available 01/11/2023 Has Tobacco Cessation Counseling Been Provided? No [email or web address] Information not available 01/11/2023 Do You Or Have You Ever Used Any Other Forms Of Tobacco Or Nicotine? No [email or web address] Information not available 01/11/2023 How Many Days In The Past Year Have You Consumed 5 Or More Drinks? 0 Information not available 01/15/2024 Sex: Unknown Functional Status None recorded. Mental Status None recorded. Family History Relationship Description Onset Age of this Age Resolved Age Notes Maternal Grandmother Family history of diabetes mellitus Medical History Condition Response Sexually Transmitted Infection N Diabetes N Other N Bleeding Disorder N High Blood Pressure N Kidney Stones N High Cholesterol N GERD/Acid Reflux N Heart Disease N Cancer Y Depression N Lung Disease N Immunizations Vaccine Type Date Status Provider Name and Address Organization Details Recorded Time pneumococcal polysaccharide PPV23 01/07/2019 completed Eveliaoctober null, [facility] 01/11/2023 11:26:19 Influenza, high-dose, quadrivalent, PF 05/12/2022 completed Milagros Skinner null, [facility] 01/15/2024 11:21:16 COVID-19, mRNA, LNP-S, bivalent, PF, 30 mcg/0.3 mL dose 05/12/2022 completed Milagros Skinner null, [facility] 01/15/2024 11:21:16 Influenza, high-dose, quadrivalent, PF 07/09/2023 completed Milagros Skinner null, [facility] 01/15/2024 11:26:57 COVID-19, mRNA, LNP-S, PF, 50 mcg/0.5 mL 07/10/2023 [facility] 11:26:57 zoster recombinant 02/29/2020 completed Eveliaoctober null, [facility] 01/11/2023 11:26:19 zoster recombinant 04/08/2019 completed Eveliaoctober null, [facility] 01/11/2023 11:26:19 Influenza, high-dose, quadrivalent, PF 03/29/2021 completed October null, [facility] 01/11/2023 11:26:19 Influenza, adjuvanted, quadrivalent, PF 04/07/2020 completed Eveliaoctober null, [facility] 01/11/2023 11:26:19 COVID-19, mRNA, LNP-S, PF, 30 mcg/0.3 mL dose 08/17/2020 completed Eveliaoctober null, [facility] 01/11/2023 11:26:19 COVID-19, mRNA, LNP-S, PF, 30 mcg/0.3 mL dose 09/07/2020 completed October null, [facility] 01/11/2023 11:26:19 COVID-19, mRNA, LNP-S, PF, 30 mcg/0.3 mL dose 11/29/2021 completed October null, [facility] 01/11/2023 11:26:19 COVID-19, mRNA, LNP-S, PF, 30 mcg/0.3 mL dose 03/29/2021 completed October null, [facility] 01/11/2023 11:26:19 Pneumococcal conjugate PCV 13 02/23/2015 completed October null, [facility] 01/11/2023 11:26:19 Influenza, high-dose, trivalent, PF 04/25/2019 completed October null, [facility] 01/11/2023 11:26:19 Influenza, high-dose, trivalent, PF 04/30/2014 completed October, [facility] 01/11/2023 11:26:19 Td (adult), 2 Lf tetanus toxoid, preservative free, adsorbed 01/05/2020 completed October null, [facility] 01/11/2023 11:26:19 Past Encounters Encounter ID Performer Location Encounter Start Date Encounter Closed Date Diagnosis/Indication Diagnosis SNOMED-CT Code Diagnosis ICD10 Code [id number] [facility] [place] [address] 03/25/2020 11:35:02 04/05/2020 11:37:27 History of malignant neoplasm of kidney 506836990 Z85.528 [id number] [facility] [place] [address] 01/13/2021 10:27:57 01/14/2021 16:40:17 History of malignant neoplasm of kidney 430420761 Z85.528 Lower urin bradly tract symptoms due to benign prostatic hypertrophy 5421750156 9101 N40.1 [id number] [facility]j [facility] [address] [place] [address] 01/10/2022 11:50:11 01/11/2022 15:52:45 Lower urinary tract symptoms due to benign prostatic hypertrophy 1113993218 9101 N40.1 History of malignant neoplasm of kidney 929653053 Z85.528 [id number] Cj Ribeiro MD [facility] [address] [place] [address] 01/11/2023 11:16:09 01/18/2023 09:14:35 History of malignant neoplasm of kidney 867712367 Z85.528 Lower urin bradly tract symptoms due to benign prostatic hypertrophy 0628723880 9101 N40.1 [id number] Milagros Jamesambrose [facility] [address] [place] [address] 01/15/2024 11:13:06 01/30/2024 13:58:03 History of malignant neoplasm of kidney 368767471 Z85.528 Benign pro static hyperplasia 374136002 N40.1 Health Concerns Section Related Observation LastModified by Organization Detai ls LastModified Time None Recorded Concern Status LastModified by Organization Details LastModified Time None Recorded Advance Directives Directive None Recorded Payers Encounter Date Sequence Insurance Name Policy Number Policy Olson Covered Member ID Olson Member ID Guarantor Name 03/25/2020 1 [employer] - DOS ON OR AFTER 19 (MEDICARE REPLACEMENT/ ADVANTAGE - HMO) [id number] Sergey Chuck Bolivar [id number] Sergey Woods Bolivar 01/13/2021 1 [employer] - DOS ON OR AFTER 19 (MEDICARE REPLACEMENT/ ADVANTAGE - HMO) [id number] Sergey Chuck Bolivar [id number] Sergey Woods Bolivar 01/10/2022 1 [employer] - DOS ON OR AFTER 19 (MEDICARE REPLACEMENT/ ADVANTAGE - HMO) [id number] Sergey Chuck Bolivar [id number] Sergey Woods Bolivar 01/11/2023 1 [employer] - DOS ON OR AFTER 19 (MEDICARE REPLACEMENT/ ADVANTAGE - HMO) [id number] Sergey Chuck Bolivar [id number] Sergey Woods Bolivar 01/15/2024 1 [employer] - DOS ON OR AFTER 19 (MEDICARE REPLACEMENT/ ADVANTAGE - PPO) [id number] Sergey Lutz [id number] Sergey Lutz Notes Date Note Type Note Provider Name and Address Organization Details Recorded Time 03/25/2020 text/html HPI Notes: follo w up renal cancer right partial nephrectomy 04/2014 gr 2 margins negative. voiding OK, no heme/dysuria. nocturia 1x. taking tamsulosin and finasteride. CXR clear earlier this month. Cj Ribeiro MD [address] [place] [address],[address], [place], [address], [facility] 03/25/2020 11:54:10 01/13/2021 text/html HPI Notes: laz t 7 years post right partial nephrectomy for RCC. renal U/S and CXR no recurrence seen last week. UA clear. voiding OK taking finasteride and tamsulosin. Cj Ribeiro MD [address] [place] [address],[address], [place], [address], [facility] 01/13/2021 10:59:02 01/10/2022 text/html HPI Notes: follo w up right partial nephrectomy for RCC in 2013. U/S and CXR ok last week. needs refills on tamsulosin and finasteride. took some calcium and had a lot of nocturia with it so stopped. no heme/dysuria. Cj Ribeiro MD [address] [place] [address],[address], [place], [address], [facility] 01/10/2022 12:18:51 01/11/2023 text/html HPI Notes: follo w up renal cancer s/p right partial nephrectomy about 6 years ago. CXR and renal U/S look OK, has a couple stone one on each side. no sx's. Cj Ribeiro MD [address] [place] [address],[address], [place], [address], [facility] 01/11/2023 12:00:38 01/15/2024 text/html HPI Notes: follo w up renal cancer s/p right partial nephrectomy about 7 years ago. CXR showing possible right upper lobe lesion, renal U/S stable. no heme/dysuria. Milagros silvestre [place] - [facility] 01/15/2024 11:44:48
--- OUTSIDE RECORDS SUMMARY | 2024-03-10 14:05 | XMS_ITS | Clinical Summary ---
Author Organization [place] Address [address] [place] [address] Care Team Providers Care Correspondence Dictator Name Role Phone Clinic, [facility] Primary Care Provider Allergies No [...] Administration Dates Next Due Influenza (High Dose) Trivalent,PF (Fluzone) 07/2013(),04/30/2014 Family History Medical History Relation Comments Colon [...] Advance Directives For more information, please contact: [phone] * Full Code (Latest Code Status on File) Date Activated Date Inactivated Comments 04/30/2014 3:50 PM 02/03/2019 10:21 AM * Full Code Date Activated Date Inactivated Comments 04/29/2014 2:34 PM 04/30/2014 3:50 PM Care Teams Correspondence Dictator Relationship Specialty Start Date End Date Clinic, [place] [address] PCP - General 09/28/15
--- OUTSIDE RECORDS SUMMARY | 2024-03-10 14:05 | XMS_ITS | Referral Summary ---
Author Organization [place] Address [address] [place] [address] Care Team Providers Care Business Support Manager Name Role Phone Clinic, [facility] Primary Care Provider Allergies No known active [...] Due Influenza (High Dose) Trivalent,PF (Fluzone) 07/2013(),04/30/2014 Social History Tobacco Use Types Packs/Day Years [...] Advance Directives For more information, please contact: [phone] * Full Code (Latest Code Status on File) Date Activated Date Inactivated Comments 04/30/2014 3:50 PM 02/03/2019 10:21 AM * Full Code Date Activated Date Inactivated Comments 04/29/2014 2:34 PM 04/30/2014 3:50 PM Care Teams Business Support Manager Relationship Specialty Start Date End Date [facility], [address] [address] PCP - General 09/28/15
[2024-03-10 14:12] LABS: WBC Urine 0-2 (0-5)
[2024-03-10 14:13] LABS: Blood Urine 1+ (Negative); RBC Urine 0-2 (0-2)
== END 2024-03-10 14:54 | disposition home or self-care (01) ==
PROVIDERS: Emergency Provider Emergency Medicine; PCP Family Medicine
DX: R33.9 Retention of urine, unspecified (principal)
CPT/HCPCS: 51702; 81001; 99283; 99284

== ENCOUNTER 2024-03-11 10:02 | Outpatient (CLI) | payer MEDICARE, SELFPAY ==
--- NOTE | 2024-03-11 10:57 | W.ANESCHARGE ---
Anesthesia Charges Start Date/Time Anesthesia Start Date: 03/11/24 Anesthesia Start Time: 10:39 Stop Date/Time Anesthesia Stop Date: 03/11/24 Anesthesia Stop Time: 11:21 Summary Extremes of Age - Over 70 or under 1: MDA
--- NOTE | 2024-03-11 11:22 | P.ANES_ITS ---
Anesthesia Charges Start Date/Time Anesthesia Start Date: 03/11/24 Anesthesia Start Time: 10:39 Stop Date/Time Anesthesia Stop Date: 03/11/24 Anesthesia Stop Time: 11:21 Summary Extremes of Age - Over 70 or under 1: [employer]
== END 2024-03-11 10:03 | disposition home or self-care (01) ==
LOC: OP CLINIC 10:03
PROVIDERS: PCP Family Medicine; Visit Provider Surgery
DX: Z12.11 Encounter for screening for malignant neoplasm of colon (principal); D12.2 Benign neoplasm of ascending colon
CPT/HCPCS: 00811; 45385; 88305; 99100; J2704

== ENCOUNTER 2024-03-12 23:42 | Emergency (ER) | payer MEDICARE, SELFPAY ==
[2024-03-12 23:52] VITALS: BP 158/82; PULSE 73; RESP 16; TEMP 36.6; O2SAT 98; BMI 24.4
--- NOTE | 2024-03-13 02:22 | ED.MALEGU ---
HPI - Male Genitourinary General Date Seen: 03/13/24 Chief complaint: Urogenital Problems, Male Stated complaint: catheter leaking Time Seen by Provider: 03/13/24 00:02 Source: patient Mode of arrival: ambulatory Limitations: no limitations History of Present Illness HPI Narrative: Patient is an 84-year-old male with a catheter placed two and half days ago because of urinary retention. He has known BPH and is on Flomax and finasteride. He will be seeing Urology next week. Tonight after showering he he noticed some urine leaking around his catheter. There has been urine in the catheter bag. He has had no hematuria. No suprapubic pain, back pain, fever. Related Data Home Medications ?Medication ?Instructions ?Recorded ?Confirmed cholecalciferol (vitamin D3) 25 25 mcg PO DAILY 02/07/22 03/10/24 mcg (1,000 unit) tablet coenzyme Q10 100 mg capsule 100 mg PO DAILY 02/07/22 03/10/24 cyanocobalamin (vitamin B-12) 500 mcg PO DAILY 02/07/22 03/10/24 1,000 mcg tablet finasteride 5 mg tablet 5 mg PO DAILY 02/07/22 03/10/24 tamsulosin 0.4 mg capsule 0.4 mg PO DAILY 02/07/22 03/10/24 aspirin 81 mg tablet,delayed 162 mg PO QDAY 02/04/24 03/10/24 release fluticasone propionate 50 1 spray intranasal QDAY 02/04/24 03/10/24 mcg/actuation nasal spray,suspension (Flonase Allergy Relief) Previous Rx's ?Medication ?Instructions ?Recorded diclofenac sodium 1 % topical gel 2 g topical QID #100 grams 07/09/23 (Arthritis Pain (diclofenac)) peg 3350-electrolytes 236 4,000 ml PO DIRECTED #4,000 mL 02/04/24 gram-22.74 gram-6.74 gram-5.86 gram solution (Golytely) pravastatin 40 mg tablet 10 mg (1/4 x 40 mg) PO .Bedtime 02/04/24 #23 tabs Allergies Allergy/AdvReac Type Severity Reaction Status Date / Time simvastatin AdvReac Mild Neck pain Verified 03/12/24 23:57 Review of Systems Narrative: Review of systems is outlined above otherwise noted to be negative. PFSH [facility] Medical History Malignant neoplasm of right kidney ?C64.1 - Malignant neoplasm of right kidney, except renal pelvis (ICD-10) Right upper lobe pulmonary nodule ?R91.1 - Solitary pulmonary nodule (ICD-10) Colon polyps ?K63.5 - Polyp of colon (ICD-10) Atrial fibrillation ?I48.91 - Unspecified atrial fibrillation (ICD-10) History of paroxysmal atrial tachycardia ?Z86.79 - Personal history of other diseases of the circulatory system (ICD-10) Surgical History Status post tonsillectomy ?Z90.89 - Acquired absence of other organs (ICD-10) Status post hernia repair ?Z98.890 - Other specified postprocedural states (ICD-10) ?Z87.19 - Personal history of other diseases of the digestive system (ICD-10) History of kidney surgery ?Z98.890 - Other specified postprocedural states (ICD-10) History of colonoscopy with polypectomy ?Z98.890 - Other specified postprocedural states (ICD-10) ?Z86.010 - Personal history of colonic polyps (ICD-10) Family History Maternal Grandmother Diabetes Mother Eye disease Brother Eye disease Father Heart disease Social History Smoking Status: Never smoker Do you use any of these nicotine containing products: None Second hand tobacco smoke exposure: No How often do you have a drink containing alcohol: never How often do you have six or more drinks on one occasion: Never AUDIT-C Alcohol total score: 0 Non-prescribed substance use: denies use Little interest or pleasure in doing things: not at all Feeling down, depressed, or hopeless: not at all service: No Exam Narrative: Exam Narrative: Vitals noted. HEENT: Conjunctiva clear. Lungs: Clear to auscultation in all antonio. No wheezes, rales, rhonchi. Heart: Regular rate and rhythm without murmur. Abdomen: Soft and nontender. No guarding, rigidity, rebound. Bowel sounds are normal. No palpable masses. No CVA or suprapubic tenderness. His Valderrama catheter has been irrigated by the nurse and there is clear urine fluid in bag. No significant sediment. No blood. No clots. Extremities: No cyanosis or edema. Good distal pulses. Skin: No abnormalities noted of the exposed skin. Neurologic: Awake, alert, fully oriented. Neurologic exam is nonfocal. Const: Vital Signs, click to edit/add: Vital Signs - 24 hr 03/12/24 23:52 Temperature 97.9 F Pulse Rate [Pulse Oximeter] 73 Respiratory Rate 16 Blood Pressure [Ri t Upper Arm] 158/82 H Pulse Oximetry 98 Oxygen Delivery Me thod Room Air Course Course ED Course: Patient seen and examined. His catheter seems to be function normally. No longer has any urine leaking around the tube. No discomfort. We did discuss changing his catheter but since it seems to be functioning okay I see no reason. Vital Signs Vital signs: Initial Vital Signs Temperature 97.9 F 03/12/24 23:52 Temperature Source Temporal Artery Scan 03/12/24 23:52 Pulse Rate 73 03/12/24 23:52 Pulse Rhythm Regular 03/12/24 23:52 Pulse Strength 3+ Normal 03/12/24 23:52 Respiratory Rate 16 03/12/24 23:52 Blood Pressure 158/82 H 03/12/24 23:52 Blood Pressure Mean 107 H 03/12/24 23:52 Blood Pressure Position Sitting 03/12/24 23:52 Pulse Oximetry 98 03/12/24 23:52 Oxygen Delivery Method Room Air 03/12/24 23:52 Vital Signs Temperature 97.9 F 03/12/24 23:52 Pulse Rate 73 03/12/24 23:52 Respiratory Rate 16 03/12/24 23:52 Blood Pressure 158/82 H 03/12/24 23:52 Pulse Oximetry 98 03/12/24 23:52 Oxygen Delivery Method Room Air 03/12/24 23:52 Temperature 97.9 F 03/12/24 23:52 Pulse Rate 73 03/12/24 23:52 Respiratory Rate 16 03/12/24 23:52 Blood Pressure 158/82 H 03/12/24 23:52 Pulse Oximetry 98 03/12/24 23:52 Oxygen Delivery Method Room Air 03/12/24 23:52 Discharge Plan Discharge Clinical Impression: Acute retention of urine Patient Disposition: Home, Self-Care Condition: Stable Additional Instructions: Push fluids. Monitor for urine draining into bag. Return to ER for absence of urine, suprapubic pain, or bladder distention. Follow up with Urology as scheduled. Prescriptions: No Action cholecalciferol (vitamin D3) 25 mcg (1,000 unit) tablet 25 mcg PO DAILY coenzyme Q10 100 mg capsule 100 mg PO DAILY finasteride 5 mg tablet 5 mg PO DAILY tamsulosin 0.4 mg capsule 0.4 mg PO DAILY cyanocobalamin (vitamin B-12) 1,000 mcg tablet 500 mcg PO DAILY diclofenac sodium [Arthritis Pain (diclofenac)] 1 % gel 2 g topical QID Qty: 100 1RF Rx Instructions: apply to single elbow, wrist or hand; for hand includes palm/fingers/back of hand aspirin 81 mg tablet,delayed release (DR/EC) 162 mg PO QDAY fluticasone propionate [Flonase Allergy Relief] 50 mcg/actuation spray,suspension 1 spray intranasal QDAY Rx Instructions: administer into each nostril peg 3350-electrolytes [Golytely] 236-22.74-6.74 -5.86 gram recon soln 4,000 ml PO DIRECTED Qty: 4000 0RF Rx Instructions: 1 day prior to scopes, between 4 and 6 p.m., drink 8 oz glass every 15 minutes until half a gallon is gone. 6 hours prior to procedure, drink 8 oz glass every 15 minutes until second half gallon is gone. pravastatin 40 mg tablet 10 mg PO .Bedtime Qty: 23 4RF Rx Instructions: Take 1/4 tablet every night before going to bed. Follow Up/Referrals: Quan Christian MD [Primary Care Provider] - Stand Alone Forms: [employer] Info Instructions
== END 2024-03-13 01:02 | disposition home or self-care (01) ==
LOC: ED 03-13 00:46
PROVIDERS: Emergency Provider Family Medicine; PCP Family Medicine
DX: R33.9 Retention of urine, unspecified (principal)
CPT/HCPCS: 99282

== ENCOUNTER 2024-03-13 12:44 | Emergency (ER) | payer MEDICARE, SELFPAY ==
[2024-03-13 13:11] VITALS: BP 141/67; PULSE 75; RESP 20; TEMP 36.8; O2SAT 97; BMI 24.4
[2024-03-13 16:43] VITALS: BP 171/86; PULSE 68; RESP 18; O2SAT 98
--- NOTE | 2024-03-13 16:56 | ED_ITS ---
HPI - Male Genitourinary General Time Seen by Provider: 16:59 Date Seen: 03/13/24 Chief complaint: Urogenital Problems, Male Stated complaint: catheter problem Time Seen by Provider: 03/13/24 16:56 Source: patient and RN notes reviewed Mode of arrival: ambulatory Limitations: no limitations History of Present Illness HPI Narrative: This 84-year-old male is coming in with episodes of urinary leakage around his catheter. He has been leaking urine around his catheter when he is draining his bag. The fluid going into the toilet gives him the urge to urinate, so he will start urinating and then gets urine leaking around the catheter. He is otherwise not noting it. He is not having any significant pain, no fevers or chills. He does have a urology follow-up next week. His catheter was placed on March 10 for urinary retention with underlying BPH, on tamsulosin and finasteride. He was in around midnight last night, they did flush the catheter, it was flowing and decision was made to not change the catheter as he was having no leakage here. Related Data Home Medications ?Medication ?Instructions ?Recorded ?Confirmed cholecalciferol (vitamin D3) 25 25 mcg PO DAILY 02/07/22 03/13/24 mcg (1,000 unit) tablet coenzyme Q10 100 mg capsule 100 mg PO DAILY 02/07/22 03/13/24 cyanocobalamin (vitamin B-12) 500 mcg PO DAILY 02/07/22 03/13/24 1,000 mcg tablet finasteride 5 mg tablet 5 mg PO DAILY 02/07/22 03/13/24 tamsulosin 0.4 mg capsule 0.4 mg PO DAILY 02/07/22 03/13/24 aspirin 81 mg tablet,delayed 162 mg PO QDAY 02/04/24 03/13/24 release fluticasone propionate 50 1 spray intranasal QDAY 02/04/24 03/13/24 mcg/actuation nasal spray,suspension (Flonase Allergy Relief) Previous Rx's ?Medication ?Instructions ?Recorded pravastatin 40 mg tablet 10 mg (1/4 x 40 mg) PO .Bedtime 02/04/24 #23 tabs Allergies Allergy/AdvReac Type Severity Reaction Status Date / Time simvastatin AdvReac Mild Neck pain Verified 03/12/24 23:57 Review of Systems Narrative: As per HPI. PFSH PFSH Medical History Malignant neoplasm of right kidney ?C64.1 - Malignant neoplasm of right kidney, except renal pelvis (ICD-10) Right upper lobe pulmonary nodule ?R91.1 - Solitary pulmonary nodule (ICD-10) Colon polyps ?K63.5 - Polyp of colon (ICD-10) Atrial fibrillation ?I48.91 - Unspecified atrial fibrillation (ICD-10) History of paroxysmal atrial tachycardia ?Z86.79 - Personal history of other diseases of the circulatory system (ICD- 10) Surgical History Status post tonsillectomy ?Z90.89 - Acquired absence of other organs (ICD-10) Status post hernia repair ?Z98.890 - Other specified postprocedural states (ICD-10) ?Z87.19 - Personal history of other diseases of the digestive system (ICD-10) History of kidney surgery ?Z98.890 - Other specified postprocedural states (ICD-10) History of colonoscopy with polypectomy ?Z98.890 - Other specified postprocedural states (ICD-10) ?Z86.010 - Personal history of colonic polyps (ICD-10) Family History Maternal Grandmother Diabetes Mother Eye disease Brother Eye disease Father Heart disease Social History Smoking Status: Former smoker Do you use any of these nicotine containing products: None Second hand tobacco smoke exposure: No How often do you have a drink containing alcohol: monthly or less How often do you have six or more drinks on one occasion: Never AUDIT-C Alcohol total score: 1 Non-prescribed substance use: denies use Little interest or pleasure in doing things: not at all Feeling down, depressed, or hopeless: not at all service: Yes Exam Const: Vital Signs, click to edit/add: Vital Signs - 24 hr 03/13/24 13:11 03/13/24 16:43 Temperature 98.3 F Pulse Rate [Pulse Oximeter] 75 68 Respiratory Rate 20 18 Blood Pressure [Ri ght Upper Arm] 141/67 H 171/86 H Pulse Oximetry 97 98 Oxygen Delivery Me thod Room Air Room Air This 84-year-old male is alert, interactive, no apparent distress. He has a Valderrama catheter in his penis, no external abnormality. There is yellow looking urine in the 2 and in the bag. No drainage around the urethra can be seen. Course Course ED Course: Options discussed with patient and he would like to try to change the Valderrama. We did discuss that this could be leaking around the wound and some bladder contraction or spasm. Did discuss use of medications that can help with bladder spasms. These medicines do have some side effects that are potential. We will see if nursing staff can change this out, will do Uro jet. He states the 1st catheter went in without any complication with use of the Uro jet. Nursing staff placed a new Valderrama catheter without any problem. Catheter is flowing, no leakage at this time. Vital Signs Vital signs: Initial Vital Signs Temperature 98.3 F 03/13/24 13:11 Temperature Source Temporal Artery Scan 03/13/24 13:11 Pulse Rate 75 03/13/24 13:11 Respiratory Rate 20 03/13/24 13:11 Blood Pressure 141/67 H 03/13/24 13:11 Blood Pressure Mean 91 03/13/24 13:11 Pulse Oximetry 97 03/13/24 13:11 Oxygen Delivery Method Room Air 03/13/24 13:11 Vital Signs Temperature 98.3 F 03/13/24 13:11 Pulse Rate 75 03/13/24 13:11 Respiratory Rate 20 03/13/24 13:11 Blood Pressure 141/67 H 03/13/24 13:11 Pulse Oximetry 97 03/13/24 13:11 Oxygen Delivery Method Room Air 03/13/24 13:11 Temperature 98.3 F 03/13/24 13:11 Pulse Rate 68 03/13/24 16:43 Respiratory Rate 18 03/13/24 16:43 Blood Pressure 171/86 H 03/13/24 16:43 Pulse Oximetry 98 03/13/24 16:43 Oxygen Delivery Method Room Air 03/13/24 16:43 Medications Administered Medications: Generic Name Dose Route Start Last Admin Trade Name Freq PRN Reason Stop Dose Admin Lidocaine HCl 6 ml 03/13/24 17:09 03/13/24 17:26 Lidocaine Hcl 2 % Jelly (Top) Sterile UR 6 ml ONCE PRN Administration Discharge Plan Discharge Clinical Impression: Complication of Valderrama catheter Patient Disposition: Home, Self-Care Condition: Stable Instructions: Valderrama Catheter Placement and Care (ED) Additional Instructions: Follow routine catheter care. If your catheter quit draining urine, this should be re-evaluated. You may experience some leaking at times, this can happen with bladder spasms. If it is increased or worsening, can talk to your doctor about consideration of Detrol. At this point, would favor observation as there can be side effects to medications. Activity Level: Activity as Tolerated Prescriptions: No Action cholecalciferol (vitamin D3) 25 mcg (1,000 unit) tablet 25 mcg PO DAILY coenzyme Q10 100 mg capsule 100 mg PO DAILY finasteride 5 mg tablet 5 mg PO DAILY tamsulosin 0.4 mg capsule 0.4 mg PO DAILY cyanocobalamin (vitamin B-12) 1,000 mcg tablet 500 mcg PO DAILY aspirin 81 mg tablet,delayed release (DR/EC) 162 mg PO QDAY fluticasone propionate [Flonase Allergy Relief] 50 mcg/actuation spray,suspension 1 spray intranasal QDAY Rx Instructions: administer into each nostril pravastatin 40 mg tablet 10 mg PO .Bedtime Qty: 23 4RF Rx Instructions: Take 1/4 tablet every night before going to bed. Follow Up/Referrals: Quan Christian MD [Primary Care Provider] - Stand Alone Forms: [employer] Info Instructions
[2024-03-13] MEDS: lidocaine HCL 2 % JELLY (TOP) STERILE 6 ML UR (17:26)
--- OUTSIDE RECORDS SUMMARY | 2024-03-13 18:00 | XMS_ITS | Clinical Summary ---
Author Organization [facility] [place], [place] [address] Care Team Providers Care Hotel Office Manager Name Role Phone Quan Christian MD Primary Care Provider [phone] Active Problems Problem Noted Date Diagnosed Date Mixed hyperlipidemia 06/15/2023 HTN (hypertension) 06/15/2023 CASIE (obstructive sleep apnea) 06/15/2023 Permanent atrial fibrillation 06/15/2023 Encounters Date Type Department Care Team Description 02/01/2024 Orders Only [address] [address] Cj Ribeiro MD 1 scan: (1-Ord) diag order 01/22/2024 4:45 PM CDT - 01/22/2024 11:59 PM CDT Hospital Encounter [address] [address] Cj Ribeiro MD Other nonspecific abnormal finding of lung field 01/22/2024 Travel 01/16/2024 Orders Only [address] [address] Cj Ribeiro MD 1 scan: (1-Ord) diag order 01/08/2024 10:14 AM CDT - 01/08/2024 11:59 PM CDT Hospital Encounter [address] [address] Cj Ribeiro MD Hx of malignant neoplasm [...] Description 03/18/2024 3:00 PM CDT Office Visit [facility] [address] [place] [id number] Milena Arguello PA [address] [place], [place] [id number] 07/08/2024 10:30 AM 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 Verify creatinine results ordering a Creatinine (53127.2) eGFR 59(L) >90 mL/min/1.7 3m2 01/22/2024 5:08 PM [facility] Comment:As of 2021, eG FR is calculated by the CKD-EPI creatinine equation without race adjustment. eGFR can be influenced by muscle mass, exercise, and diet. The reported eGFR is an estimation only and is only applicable if the renal function is stable. Blood BLOOD SPECIMEN / Unknown 01/22/2024 5:04 PM CDT 01/22/2024 5:08 PM CDT Cj Ribeiro MD CHEMISTRY [facility] [address] [place] [address] * US RENAL AND BLADDER COMPLETE (01/08/2024 [...] @ Dec ??9 2023 ??4:31PM (Electronically Signed) [email or web address] Narrative 01/08/2024 4:31 PM CDT For Patients: [...] @ Jan 08 2024 4:31PM (Electronically Signed) [email or web address] Cj Ribeiro MD US * XR CHEST [...] MD @ Dec ??2023 12:59PM (Electronically Signed) [email or web address] Narrative 01/08/2024 12:59 PM CDT For Patients: [...] @ Jan 08 2024 12:59PM (Electronically Signed) [email or web address] Cj Ribeiro MD GENERAL IMAGING from Last 3 Months Care Teams Hotel Office Manager Relationship Specialty Start Date End Date Quan Christian MD [address] [place], [place] [id number] PCP - General Family Practice 05/06/21
--- OUTSIDE RECORDS SUMMARY | 2024-03-13 18:00 | XMS_ITS | Clinical Summary ---
Author Organization [facility] Address [address] [place] [id number] Care Team Providers Care Rubber Goods Finisher Name Role Phone Clinic, [facility] Primary Care Provider Allergies No known [...] Advance Directives For more information, please contact: [phone] * Full Code (Latest Code Status on File) Date Activated Date Inactivated Comments 04/30/2014 3:50 PM 02/03/2019 10:21 AM * Full Code Date Activated Date Inactivated Comments 04/29/2014 2:34 PM 04/30/2014 3:50 PM Care Teams Rubber Goods Finisher Relationship Specialty Start Date End Date Clinic, [place] [address] PCP - General 09/28/15
--- OUTSIDE RECORDS SUMMARY | 2024-03-13 18:00 | XMS_ITS | Referral Summary ---
Author Organization [place] Address [address] [place] [id number] Care Team Providers Care Eyelet Row Marker Name Role Phone Clinic, [facility] Primary Care Provider Allergies No known [...] Advance Directives For more information, please contact: [phone] * Full Code (Latest Code Status on File) Date Activated Date Inactivated Comments 04/30/2014 3:50 PM 02/03/2019 10:21 AM * Full Code Date Activated Date Inactivated Comments 04/29/2014 2:34 PM 04/30/2014 3:50 PM Care Teams Eyelet Row Marker Relationship Specialty Start Date End Date [facility], [address] [address] PCP - General 09/28/15
--- OUTSIDE RECORDS SUMMARY | 2024-03-13 18:01 | XMS_ITS | Data Portability ---
Author Organization [facility] Address [address] [place] [address] Care Team Providers Care Journalists And Other Writers Name Role Phone [facility] Primary Care Provider [phone] Assessment No assessment recorded. Plan of Treatment Reminders Order Date Submit Date Provider Last Modified By Organization Details Last Modified Time Details Appointments ESTABLISH ED 10 2023 10:20A M Not available Not available Not available Lab urinalysi s, dipstick 2020 021 [email or web address] [facility], [address], [address], [place], [address], 01/13/2021 10:39:59 urinalysi s, dipstick 2021 022 [email or web address] [facility], [address], [address], [place], [address], 01/10/2022 12:03:45 Referral None recorded. Procedures None recorded. Surgeries None recorded. Imaging None recorded. Medication Orders finasteri de 5 mg tablet 2020 021 [facility], [address] [place], [address], 01/13/2021 10:57:45 tamsulosi n 0.4 mg capsule 2020 021 [facility]5307, [address] [place], [address], 01/13/2021 10:57:45 tamsulosi n 0.4 mg capsule 2021 022 [facility], [address] [place], [address], 04/03/2022 16:05:19 finasteri de 5 mg tablet 2021 022 [facility], [address] [place], [address], 04/03/2022 16:05:57 finasteri de 5 mg tablet 2022 023 [facility], [address] [place], [address], 01/11/2023 11:59:13 tamsulosi n 0.4 mg capsule 2023 024 [facility] [address] [place], [address], 01/15/2024 11:43:30 finasteri de 5 mg tablet 2023 024 [facility]56, [address] [place], [address], 01/15/2024 11:43:32 Patient TargetsNo targets recorded. Patient Instructions Encounter Date Encounter Id Patient Instructions Last Modified By Organization Details Last Modified Time 03/25/2020 [id number] doing well, voiding OK on tamsulosin and finasteride, OK to refill when needs Rx's renewed. plan recheck 1 year with CXR and renal U/S. [email or web address] Not available 03/25/2020 11:53:13 01/13/2021 [id number] no sign of recurrence. continue finasteride and tamsulosin, plan rtc 1 year with renal U/S and PA/lateral CXR. [email or web address] Not available 01/13/2021 10:58:44 01/10/2022 [id number] refill tamsulosi n and finasteride sent. plan recheck 1 year with CXR and renal U/S. [email or web address] Not available 01/10/2022 12:16:44 01/11/2023 [id number] refill finasteride sent, OK on tamsulosin for now. plan rtc 1 year with CXR and renal U/S [email or web address] Not available 01/11/2023 11:59:51 01/15/2024 [id number] will set up for CT chest without and with, call with report, refill finasteride and tamsulosin [email or web address] Not available 01/15/2024 11:44:34 Reason for Referral None Reported. Results Created Date Observation Date Name Description Value Unit Range Abnormal Flag Note LastModifiedBy Organization Detail LastModifiedTime 01/13/2021 urina lysis , dipst ick pH-Status 5.5 Not Available [address] [address], [place], [address], 01/13/2021 10:34:10 01/11/20 22 01/10/2022 urina lysis , dipst ick Color-Status Yellow Not Available [address], [place], [address], 01/10/2022 12:02:52 01/11/20 22 01/10/2022 urina lysis , dipst ick Protein-Stat us 7.0 Not Available [address], [place], [address], 01/10/2022 12:02:52 03/17/20 20 XR, chest , 2 view No observ ation record ed. [email or web address] Not Available 03/19 13:25:40 01/07/20 21 01/06/2021 XR, chest , 2 view No observ ation record ed. [email or web address] [facility] [address], [place], [address], 01/06/2021 13:43:06 01/07/20 21 01/06/2021 US, renal No observ ation record ed. [email or web address] Not Available 01/07 09:35:07 01/10/20 22 01/04/2022 US, renal No observ ation record ed. [email or web address] [facility] [address] [place] [address] [place], [address], 01/09/2022 12:48:50 01/10/20 22 01/04/2022 XR, chest , 2 view No observ ation record ed. [email or web address] [facility] [place], [address], 01/09/2022 12:48:51 01/02/20 23 01/01/2023 XR, chest , 2 view No observ ation record ed. [email or web address] [address] [place], [address], 01/04/2023 09:59:32 01/02/20 23 01/01/2023 US, renal No observ ation record ed. [email or web address] [address] [place], [address], 01/04/2023 09:59:33 01/08/20 24 01/08/2024 XR, chest , 2 view No observ ation record ed. [facility] [address] [place], [address], 01/08/2024 15:03:59 01/08/20 24 01/08/2024 US, renal No observ ation record ed. [facility] [address] [place], [address], 01/10/2024 09:31:12 01/29/20 24 01/22/2024 CT, chest , w/wo contr ast No observ ation record ed. [email or web address] [facility] [address] [place], [address], 02/01/2024 09:53:02 Result Notes None recorded. 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 Not Available [facility] 0 02:03:40 Nocturia 091513423 Active 2013 788.43 : NOCTURIA Not Available [facility] 0 02:03:40 Clinical finding Active 2017 N40.1 : Benign prostatic hyperplasi a with lower urinary tract symp Not Available [facility] 0 02:03:40 Urinary tract obstructi on 3041671 Active 2011 600.21 : HYPERPLASI A OF PROSTATE W/OBST Not Available [facility] 0 02:03:40 Benign prostatic hyperplas ia 402660564 Active 2011 600.21 : HYPERPLASI A OF PROSTATE W/OBST Not Available [facility] 0 02:03:40 Lower urinary tract symptoms 739705048 Active 2011 600.21 : HYPERPLASI A OF PROSTATE W/OBST Not Available [facility] 0 02:03:40 History of malignant neoplasm of kidney 263958783 Active 2017 Z85.528 : Personal history of other malignant neoplasm of kidney Not Available [facility] 0 02:03:40 Problem Notes None recorded. Procedures Surgical History Date Name Laterality Status Provider Name and Address Organization Details Recorded Time 4 Bladder Scan completed [facility] 01/15/2024 11:27:44 Remove tonsils and adenoids completed COLE [facility] 03/25/2020 11:41:17 procedure on kidney completed COLE Hernandez [facility] 03/25/2020 11:41:38 Imaging Results Imaging Date Name Status LastModified by Sanya gann Details LastModified Time 03/17/2020 XR, chest, 2 view completed [email or web address] Information not available 03/19/2020 13:25:40 01/06/2021 XR, chest, 2 view completed [email or web address] [facility] [address], [place], [address], 01/06/2021 13:43:06 01/06/2021 US, renal completed [email or web address] Information no t available 01/07/2021 09:35:07 01/04/2022 US, renal completed [email or web address] [facility] [address] [place] [address] [place], [address], 01/09/2022 12:48:50 01/04/2022 XR, chest, 2 view completed [email or web address] [facility] [address] [place] [address] [place], [address], 01/09/2022 12:48:51 01/01/2023 XR, chest, 2 view completed [email or web address] [facility] [address] [place] [address] [place], [address], 01/04/2023 09:59:32 01/01/2023 US, renal completed [email or web address] [facility] [address] [place] [address] [place], [address], 01/04/2023 09:59:33 01/08/2024 XR, chest, 2 view completed [facility] [address] [place], [address], 01/08/2024 15:03:59 01/08/2024 US, renal completed [facility] [address] [place], [address], 01/10/2024 09:31:12 01/22/2024 CT, chest, w/wo contrast completed [email or web address] [facility] [address] [facility] [place], [address], 02/01/2024 09:53:02 Procedure Notes None recorded. Medical [...] Updated DateTime 01/10/2022 185.42 cm 24.4 kg/m2 00942.59 g Cj Ribeiro MD [address], [place], [address] 01/10/2022 12:02:27 Date Recorded Body height Body mass index (BMI) Body weight Provider Name and Address Organization Details Last Updated DateTime 03/25/2020 187.96 cm 22.5 kg/m2 54917.66 g Florecita Castillo [facility] 03/25/2020 11:37:50 Date Recorded Body height Body mass index (BMI) Body weight Provider Name and Address Organization Details Last Updated DateTime 01/11/2023 185.42 cm 24.4 kg/m2 65064.59 g Evelia Chrissie [facility] 01/11/2023 11:26:14 Date Recorded Body height Body mass index (BMI) Body weight Provider Name and Address Organization Details Last Updated DateTime 01/15/2024 185.42 cm 24.4 kg/m2 05861.59 g Milagros Skinner [facility] 01/15/2024 11:21:11 Date Recorded Body height Body mass index (BMI) Body weight Provider Name and Address Organization Details Last Updated DateTime 01/13/2021 185.42 cm 24 kg/m2 06554.81 g Cj Ribeiro MD [address] [place] [address], [address] [place] [address] 01/13/2021 10:38:16 Social History Question Answer Notes LastModified by Organizat ion Details LastModified Time Tobacco Smoking Status Former [facility]oker quit [facility] 03/25/2020 11:40:20 What Is Your Level Of Alcohol Consumption? Occasional Information not available 03/25/2020 How Many Times Per Week Do You Consume Alcohol? 1-2 Times Per Week [email or web address] Information not available 01/11/2023 What Is Your Level Of Caffeine Consumption? None Information not available 03/25/2020 When Did You Quit Smoking? 15+yearssinaureliano reis [email or web address] Information not available 01/11/2023 What Was The Date Of Your Most Recent Tobacco Screening? 01/15/2024 Information not available 01/15/2024 Have You Ever Been Counseled For Unhealthy Alcohol Use? No [email or web address] Information not available 01/11/2023 Do You Use Any Illicit Or Recreational Drugs? No [email or web address] Information not available 01/11/2023 Has Tobacco Cessation Counseling Been Provided? No [email or web address] Information not available 01/11/2023 Do You Or Have You Ever Used Any Other Forms Of Tobacco Or Nicotine? No [email or web address] Information not available 01/11/2023 How Many Days In The Past Year Have You Consumed 5 Or More Drinks? 0 Information not available 01/15/2024 Sex: Unknown Functional Status None recorded. Mental Status None recorded. Family History Relationship Description Onset Age of this Age Resolved Age Notes Maternal Grandmother Family history of diabetes mellitus Medical History Condition Response Diabetes N Sexually Transmitted Infection N Bleeding Disorder N Other N High Blood Pressure N Kidney Stones N High Cholesterol N GERD/Acid Reflux N Heart Disease N Cancer Y Depression N Lung Disease N Immunizations Vaccine Type Date Status Provider Name and Address Organization Details Recorded Time pneumococcal polysaccharide PPV23 01/07/2019 completed October null, [facility] 01/11/2023 11:26:19 Influenza, high-dose, quadrivalent, PF 05/12/2022 completed Rubia Myriami null, [facility] 01/15/2024 11:21:16 COVID-19, mRNA, LNP-S, bivalent, PF, 30 mcg/0.3 mL dose 05/12/2022 completed Rubiambrose null, [facility] 01/15/2024 11:21:16 Influenza, high-dose, quadrivalent, PF 07/09/2023 completed Rubiracki null, [facility] 01/15/2024 11:26:57 COVID-19, mRNA, LNP-S, PF, 50 mcg/0.5 mL 07/10/2023 completed Rubiflavioi null, [facility] 01/15/2024 11:26:57 zoster recombinant 02/29/2020 completed October null, [facility] 01/11/2023 11:26:19 zoster recombinant 04/08/2019 [facility] 01/11/2023 11:26:19 Influenza, high-dose, quadrivalent, PF 03/29/2021 completed Evelia October null, [facility] 01/11/2023 11:26:19 Influenza, adjuvanted, quadrivalent, PF 04/07/2020 completed Eveliaoctober null, [facility] 01/11/2023 11:26:19 COVID-19, mRNA, LNP-S, PF, 30 mcg/0.3 mL dose 08/17/2020 completed Eveliaoctober null, [facility] 01/11/2023 11:26:19 COVID-19, mRNA, LNP-S, PF, 30 mcg/0.3 mL dose 09/07/2020 completed Evelia October null, [facility] 01/11/2023 11:26:19 COVID-19, mRNA, LNP-S, PF, 30 mcg/0.3 mL dose 11/29/2021 completed Evelia October, [facility] 01/11/2023 11:26:19 COVID-19, mRNA, LNP-S, PF, 30 mcg/0.3 mL dose 03/29/2021 completed Eveliaoctober, [facility] 01/11/2023 11:26:19 Pneumococcal conjugate PCV 13 02/23/2015 completed Eveliaoctober, [facility] 01/11/2023 11:26:19 Influenza, high-dose, trivalent, PF 04/25/2019 completed Eveliaoctober, [facility] 01/11/2023 11:26:19 Influenza, high-dose, trivalent, PF 04/30/2014 completed Evelia October, [facility] 01/11/2023 11:26:19 Td (adult), 2 Lf tetanus toxoid, preservative free, adsorbed 01/05/2020 [facility] 11:26:19 Past Encounters Encounter ID Performer Location Encounter Start Date Encounter Closed Date Diagnosis/Indication Diagnosis SNOMED-CT Code Diagnosis ICD10 Code [id number] [facility] [address],[facility] [address] [place] [address] 03/25/2020 11:35:02 04/05/2020 11:37:27 History of malignant neoplasm of kidney 273411983 Z85.528 [id number] [facility] [address] [address] 01/13/2021 10:27:57 01/14/2021 16:40:17 History of malignant neoplasm of kidney 609548733 Z85.528 Lower urin bradly tract symptoms due to benign prostatic hypertrophy 9613016841 9101 N40.1 [id number] Cj Ribeiro MD [facility] [address] [place] [address] 01/10/2022 11:50:11 01/11/2022 15:52:45 Lower urinary tract symptoms due to benign prostatic hypertrophy 2795025574 9101 N40.1 History of malignant neoplasm of kidney 670917619 Z85.528 [id number] Cj Ribeiro MD [facility] [address] [place] [address] 01/11/2023 11:16:09 01/18/2023 09:14:35 History of malignant neoplasm of kidney 255174644 Z85.528 Lower urin bradly tract symptoms due to benign prostatic hypertrophy 8493393259 9101 N40.1 [id number] Milagros Skinner [facility] [address] [place] [address] 01/15/2024 11:13:06 01/30/2024 13:58:03 History of malignant neoplasm of kidney 039561482 Z85.528 Benign pro static hyperplasia 768392020 N40.1 Health Concerns Section Related Observation LastModified by Organization Detai ls LastModified Time None Recorded Concern Status LastModified by Organization Details LastModified Time None Recorded Advance Directives Directive None Recorded Payers Encounter Date Sequence Insurance Name Policy Number Policy Olson Covered Member ID Olson Member ID Guarantor Name 03/25/2020 1 [employer] - DOS ON OR AFTER 19 (MEDICARE REPLACEMENT/ ADVANTAGE - HMO) [id number] Sergey Chuck Bolivar [id number] Sergey Woods Bolivar 01/13/2021 1 [employer] - DOS ON OR AFTER 19 (MEDICARE REPLACEMENT/ ADVANTAGE - HMO) [id number] Sergey Lutz [id number] Sergey Woods Bolivar 01/10/2022 1 [employer] - DOS ON OR AFTER 19 (MEDICARE REPLACEMENT/ ADVANTAGE - HMO) [id number] Sergey Lutz [id number] Sergey Woods Bolivar 01/11/2023 1 [employer] - DOS ON OR AFTER 19 (MEDICARE REPLACEMENT/ ADVANTAGE - HMO) [id number] Sergey Lutz [id number] Sergey Lutz 01/15/2024 1 [employer] - DOS ON OR AFTER 19 (MEDICARE REPLACEMENT/ ADVANTAGE - PPO) [id number] Sergey Lutz [id number] Sergey Lutz Notes Date Note Type Note Provider Name and Address Organization Details Recorded Time 03/25/2020 text/html HPI Notes: follo w up renal cancer right partial nephrectomy 04/2014 gr 2 margins negative. voiding OK, no heme/dysuria. nocturia 1x. taking tamsulosin and finasteride. CXR clear earlier this month. Cj Ribeiro MD [address] [place] [address],[address], [address], [facility] 03/25/2020 11:54:10 01/13/2021 text/html HPI Notes: almos t 7 years post right partial nephrectomy for RCC. renal U/S and CXR no recurrence seen last week. UA clear. voiding OK taking finasteride and tamsulosin. Cj Ribeiro MD [address] [place] [address],[address] [address], [place], [address], [facility] 01/13/2021 10:59:02 01/10/2022 text/html HPI Notes: follo w up right partial nephrectomy for RCC in 2013. U/S and CXR ok last week. needs refills on tamsulosin and finasteride. took some calcium and had a lot of nocturia with it so stopped. no heme/dysuria. Cj Ribeiro MD [address] [place] [address],[address] [address], [place], [address], [facility] 01/10/2022 12:18:51 01/11/2023 text/html HPI Notes: follo w up renal cancer s/p right partial nephrectomy about 6 years ago. CXR and renal U/S look OK, has a couple stone one on each side. no sx's. Cj Ribeiro MD [address] [place] [address],[address], [place], [address], [facility] 01/11/2023 12:00:38 01/15/2024 text/html HPI Notes: follo w up renal cancer s/p right partial nephrectomy about 7 years ago. CXR showing possible right upper lobe lesion, renal U/S stable. no heme/dysuria. COLE Ortiz [facility] 01/15/2024 11:44:48
--- OUTSIDE RECORDS SUMMARY | 2024-03-13 18:01 | XMS_ITS | Continuity of Care Document ---
Author Organization [place] [facility] [place] [facility] Address [address] [place] [address] Care Team Providers Care Police Crime Scene Technician Name Role Phone [facility] Primary Care Provider [phone] Assessment No assessment recorded. Plan of Treatment Reminders Order Date Submit Date Provider Last Modified By Organization Details Last Modified Time Details Appointments ESTABLISH ED 10 2023 10:20A M Not available Not available Not available Lab None recorded. Referral None recorded. Procedures None recorded. Surgeries None recorded. Imaging None recorded. Medication Orders tamsulosi n 0.4 mg capsule 2023 024 [facility] #[id number], [address] [place], [address], 01/15/2024 11:43:30 finasteri de 5 mg tablet 2023 024 [facility] #[id number], [address] [place], [address], 01/15/2024 11:43:32 Patient TargetsNo targets recorded. Patient Instructions Encounter Date Encounter Id Patient Instructions Last Modified By Organization Details Last Modified Time 01/15/2024 [id number] will set up for CT chest without and with, call with report, refill finasteride and tamsulosin dsieracki Not available 01/15/2024 11:44:34 Reason for Referral None Reported. Results Created Date Observation Date Name Description Value Unit Range Abnormal Flag Note LastModifiedBy Organization Detail LastModifiedTime 01/08/20 24 01/08/2024 XR, chest , 2 view No observ ation record ed. [facility] [address] [place], [address], 01/08/2024 15:03:59 01/08/20 24 01/08/2024 US, renal No observ ation record ed. [facility] [address] [place], [address], 01/10/2024 09:31:12 01/29/20 24 01/22/2024 CT, chest , w/wo contr ast No observ ation [facility] [address] [place], [address], 02/01/2024 09:53:02 Result Notes None recorded. 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 Not Available [facility] 0 02:03:40 Nocturia 783849804 Active 2013 788.43 : NOCTURIA Not Available [facility] 0 02:03:40 Clinical finding Active 2017 N40.1 : Benign prostatic hyperplasi a with lower urinary tract symp Not Available [facility] 0 02:03:40 Urinary tract obstructi on 9284164 Active 2011 600.21 : HYPERPLASI A OF PROSTATE W/OBST Not Available [facility] 0 02:03:40 Benign prostatic hyperplas ia 814538293 Active 2011 600.21 : HYPERPLASI A OF PROSTATE W/OBST Not Available [facility] 0 02:03:40 Lower urinary tract symptoms 735218246 Active 2011 600.21 : HYPERPLASI A OF PROSTATE W/OBST Not Available [facility] 0 02:03:40 History of malignant neoplasm of kidney 414303037 Active 2017 Z85.528 : Personal history of other malignant neoplasm of kidney Not Available [facility] 0 02:03:40 Problem Notes None recorded. Procedures Surgical History Date Name Laterality Status Provider Name and Address Organization Details Recorded Time Bladder Scan completed Milagros silvestre [facility] 01/15/2024 11:27:44 [facility] 03/25/2020 11:41:17 [facility] 03/25/2020 11:41:38 Imaging Results None recorded. Procedure Notes None recorded. Medical Equipment None [...] Updated DateTime 01/15/2024 185.42 cm 24.4 kg/m2 18404.59 g Milagros Skinner [facility] 01/15/2024 11:21:11 Social History Question Answer Notes LastModified by Organizat ion Details LastModified Time Tobacco Smoking Status Former Smoker quit [email or web address] Castillo [facility] 03/25/2020 11:40:20 What Is Your Level Of Alcohol Consumption? Occasional Information not available 03/25/2020 How Many Times Per Week Do You Consume Alcohol? 1-2 Times Per Week [email or web address] Information not available 01/11/2023 What Is Your Level Of Caffeine Consumption? None Information not available 03/25/2020 When Did You Quit Smoking? 16+yearssincel astcigarette [email or web address] Information not available 01/11/2023 What Was The Date Of Your Most Recent Tobacco Screening? 01/15/2024 Information not available 01/15/2024 Have You Ever Been Counseled For Unhealthy Alcohol Use? No [email or web address] Information not available 01/11/2023 Do You Use Any Illicit Or Recreational Drugs? No [email or web address] Information not available 01/11/2023 Has Tobacco Cessation Counseling Been Provided? No [email or web address] Information not available 01/11/2023 Do You Or Have You Ever Used Any Other Forms Of Tobacco Or Nicotine? No [email or web address] Information not available 01/11/2023 How Many Days In The Past Year Have You Consumed 5 Or More Drinks? 0 Information not available 01/15/2024 Sex: Unknown Functional Status None recorded. Mental Status None recorded. Family History Relationship Description Onset Age of this Age Resolved Age Notes Maternal Grandmother Family history of diabetes mellitus Medical History Condition Response Other N High Blood Pressure N Kidney Stones N Lung Disease N Depression N GERD/Acid Reflux N Diabetes N Sexually Transmitted Infection N Bleeding Disorder N Cancer Y High Cholesterol N Heart Disease N Immunizations Vaccine Type Date Status Provider Name and Address Organization Details Recorded Time pneumococcal polysaccharide PPV23 [facility]/07/2019 [facility] 11:26:19 Influenza, high-dose, quadrivalent, PF 05/12/2022 completed Milagros silvestre [facility] 01/15/2024 11:21:16 COVID-19, mRNA, LNP-S, bivalent, PF, 30 mcg/0.3 mL dose 05/12/2022 completed Rubiracki null, [facility] 01/15/2024 11:21:16 Influenza, high-dose, quadrivalent, PF 07/09/2023 completed zerrack null, [facility] 01/15/2024 11:26:57 COVID-19, mRNA, LNP-S, PF, 50 mcg/0.5 mL 07/10/2023 completed Dezerrack null, [facility] 01/15/2024 11:26:57 zoster recombinant 02/29/2020 completed Evelia October null, [facility] 01/11/2023 11:26:19 zoster recombinant 04/08/2019 completed Evelia October null, [facility] 01/11/2023 11:26:19 Influenza, high-dose, quadrivalent, PF 03/29/2021 completed October null, [facility] 01/11/2023 11:26:19 Influenza, adjuvanted, quadrivalent, PF 04/07/2020 completed Evelia October null, [facility] 01/11/2023 11:26:19 COVID-19, mRNA, LNP-S, PF, 30 mcg/0.3 mL dose 08/17/2020 completed Eveliaoctober null, [facility] 01/11/2023 11:26:19 COVID-19, mRNA, LNP-S, PF, 30 mcg/0.3 mL dose 09/07/2020 completed Eveliaoctober null, [facility] 01/11/2023 11:26:19 COVID-19, mRNA, LNP-S, PF, 30 mcg/0.3 mL dose 11/29/2021 completed Evelia October null, [facility] 01/11/2023 11:26:19 COVID-19, mRNA, LNP-S, PF, 30 mcg/0.3 mL dose 03/29/2021 completed Evelia October null, [facility] 01/11/2023 11:26:19 Pneumococcal conjugate PCV 13 02/23/2015 completed Eveliaoctober null, [facility] 01/11/2023 11:26:19 Influenza, high-dose, trivalent, PF 04/25/2019 completed Evelia October nirmala [facility] 01/11/2023 11:26:19 Influenza, high-dose, trivalent, PF 04/30/2014 completed Evelia October nirmala [facility] 01/11/2023 11:26:19 Td (adult), 2 Lf tetanus toxoid, preservative free, adsorbed 01/05/2020 completed Evelia October nirmala [facility] 01/11/2023 11:26:19 Past Encounters Encounter ID Performer Location Encounter Start Date Encounter Closed Date Diagnosis/Indication Diagnosis SNOMED-CT Code Diagnosis ICD10 Code [id number] [facility]agros [facility] [address] [place] [address] 01/15/2024 11:13:06 01/30/2024 13:58:03 History of malignant neoplasm of kidney 880544657 Z85.528 Benign pro static hyperplasia 103428467 N40.1 Health Concerns Section Related Observation LastModified by Organization Detai ls LastModified Time None Recorded Concern Status LastModified by Organization Details LastModified Time None Recorded Payers Encounter Date Sequence Insurance Name Policy Number Policy Olson Covered Member ID Olson Member ID Guarantor Name 01/15/2024 1 [employer] - DOS ON OR AFTER 19 (MEDICARE REPLACEMENT/ ADVANTAGE - PPO) [id number] 1 Sergey Lutz [id number] Sergey Lutz Notes Date Note Type Note Provider Name and Address Organization Details Recorded Time 01/15/2024 text/html HPI Notes: follo w up renal cancer s/p right partial nephrectomy about 7 years ago. CXR showing possible right upper lobe lesion, renal U/S stable. no heme/dysuria. Milagros silvestre [facility] 01/15/2024 11:44:48
== END 2024-03-13 18:11 | disposition home or self-care (01) ==
PROVIDERS: Emergency Provider Family Medicine; PCP Family Medicine
DX: R33.9 Retention of urine, unspecified (principal); T83.031A Leakage of indwelling urethral catheter, initial encounter
CPT/HCPCS: 51702; 99282; 99283

== ENCOUNTER 2024-03-20 23:08 | Emergency (ER) | payer MEDICARE, SELFPAY ==
[2024-03-20 23:30] VITALS: BP 184/93; PULSE 101; RESP 16; TEMP 37; O2SAT 94; BMI 23.7
--- NOTE | 2024-03-20 23:40 | ED_ITS ---
HPI - Male Genitourinary General Chief complaint: Urogenital Problems, Male Stated complaint: urine retention Time Seen by Provider: 03/20/24 23:22 History of Present Illness HPI Narrative: Patient is 84-year-old gentleman who was seen at the urologist's office earlier today for removal of his catheter that was placed for urinary obstruction. Patient feels like he is not emptying well and is very uncomfortable. He does not feel like he has any signs of infection. He recently started Flomax. He would very much like to have his catheter replaced and reassess his ability to empty his bladder early next week. Patient is otherwise feeling well. No fevers chills night sweats dysuria. He has had some mild hematuria likely due to the repeated catheterizations that he is had. No other concerns. Related Data Home Medications ?Medication ?Instructions ?Recorded ?Confirmed cholecalciferol (vitamin D3) 25 25 mcg PO DAILY 02/07/22 03/13/24 mcg (1,000 unit) tablet coenzyme Q10 100 mg capsule 100 mg PO DAILY 02/07/22 03/13/24 cyanocobalamin (vitamin B-12) 500 mcg PO DAILY 02/07/22 03/13/24 1,000 mcg tablet finasteride 5 mg tablet 5 mg PO DAILY 02/07/22 03/13/24 tamsulosin 0.4 mg capsule 0.4 mg PO DAILY 02/07/22 03/13/24 aspirin 81 mg tablet,delayed 162 mg PO QDAY 02/04/24 03/13/24 release fluticasone propionate 50 1 spray intranasal QDAY 02/04/24 03/13/24 mcg/actuation nasal spray,suspension (Flonase Allergy Relief) Previous Rx's ?Medication ?Instructions ?Recorded pravastatin 40 mg tablet 10 mg (1/4 x 40 mg) PO .Bedtime 02/04/24 #23 tabs Allergies Allergy/AdvReac Type Severity Reaction Status Date / Time simvastatin AdvReac Mild Neck pain Verified 03/20/24 23:33 Review of Systems Status of ROS: Reports: 10 or more systems reviewed and unremarkable except as noted in History and below [facility] Medical History Malignant neoplasm of right kidney ?C64.1 - Malignant neoplasm of right kidney, except renal pelvis (ICD-10) Right upper lobe pulmonary nodule ?R91.1 - Solitary pulmonary nodule (ICD-10) Colon polyps ?K63.5 - Polyp of colon (ICD-10) Atrial fibrillation ?I48.91 - Unspecified atrial fibrillation (ICD-10) History of paroxysmal atrial tachycardia ?Z86.79 - Personal history of other diseases of the circulatory system (ICD- 10) Surgical History Status post tonsillectomy ?Z90.89 - Acquired absence of other organs (ICD-10) Status post hernia repair ?Z98.890 - Other specified postprocedural states (ICD-10) ?Z87.19 - Personal history of other diseases of the digestive system (ICD-10) History of kidney surgery ?Z98.890 - Other specified postprocedural states (ICD-10) History of colonoscopy with polypectomy ?Z98.890 - Other specified postprocedural states (ICD-10) ?Z86.010 - Personal history of colonic polyps (ICD-10) Family History Maternal Grandmother Diabetes Mother Eye disease Brother Eye disease Father Heart disease Social History Smoking Status: Former smoker Do you use any of these nicotine containing products: None Second hand tobacco smoke exposure: No How often do you have a drink containing alcohol: monthly or less How often do you have six or more drinks on one occasion: Never AUDIT-C Alcohol total score: 1 Non-prescribed substance use: denies use Little interest or pleasure in doing things: not at all Feeling down, depressed, or hopeless: not at all service: Yes Exam Narrative: Exam Narrative: EXAM GENERAL: Patient appears anxious. EYES: No scleral icterus. ENT: Tympanic membranes and oropharynx normal. THYROID: no thyroid nodules or thyromegaly. LYMPH: No supraclavicular or cervical lymphadenopathy. SKIN: Visible skin seen during exam normal or with benign process only. EXT: No dependent lower extremity pedal edema. HEART: Regular rate and rhythm with no murmurs, rubs, or gallops. LUNGS: Clear to auscultation bilaterally with no crackles or wheezes. ABD: Soft, non tender, non distended. PSYCH: Good eye contact, speech is not pressured. Const: Vital Signs, click to edit/add: Vital Signs - 24 hr 03/20/24 23:30 Temperature 98.6 F Pulse Rate [Right Pulse Oximeter] 101 H Respiratory Rate 16 Blood Pressure [Ri ght Upper Arm] 184/93 H Pulse Oximetry 94 Oxygen Delivery Me thod Room Air Course Course ED Course: Patient seen and examined. Postvoid residual is over 300 in the patient is uncomfortable. Vital Signs Vital signs: Initial Vital Signs Temperature 98.6 F 03/20/24 23:30 Temperature Source Temporal Artery Scan 03/20/24 23:30 Pulse Rate 101 H 03/20/24 23:30 Pulse Rhythm Regular 03/20/24 23:30 Pulse Strength 3+ Normal 03/20/24 23:30 Respiratory Rate 16 03/20/24 23:30 Blood Pressure 184/93 H 03/20/24 23:30 Blood Pressure Mean 123 H 03/20/24 23:30 Blood Pressure Position Sitting 03/20/24 23:30 Pulse Oximetry 94 03/20/24 23:30 Oxygen Delivery Method Room Air 03/20/24 23:30 Vital Signs Temperature 98.6 F 03/20/24 23:30 Pulse Rate 101 H 03/20/24 23:30 Respiratory Rate 16 03/20/24 23:30 Blood Pressure 184/93 H 03/20/24 23:30 Pulse Oximetry 94 03/20/24 23:30 Oxygen Delivery Method Room Air 03/20/24 23:30 Temperature 98.6 F 03/20/24 23:30 Pulse Rate 101 H 03/20/24 23:30 Respiratory Rate 16 03/20/24 23:30 Blood Pressure 184/93 H 03/20/24 23:30 Pulse Oximetry 94 03/20/24 23:30 Oxygen Delivery Method Room Air 03/20/24 23:30 MDM - Male Genitourinary MDM Narrative Medical decision making narrative: Patient is an 84-year-old gentleman with history urinary obstruction who had a catheter removed earlier today requesting the catheter be put back in as he is unable to urinate at his discretion. His postvoid residual isn't terrible but I do think it warrants consideration of place the catheter back in. He very much insist on this and we did place a catheter for him. He will continue Flomax and follow-up with his urologist early next week. Discharge Plan Discharge Clinical Impression: Acute urinary obstruction Patient Disposition: Home, Self-Care Condition: Stable Instructions: Valderrama Catheter Placement and Care (ED) Additional Instructions: Continue current medications Continue catheter care Follow-up with your doctor next week. Activity Level: No Restrictions Discharge Diet: Regular Prescriptions: No Action cholecalciferol (vitamin D3) 25 mcg (1,000 unit) tablet 25 mcg PO DAILY coenzyme Q10 100 mg capsule 100 mg PO DAILY finasteride 5 mg tablet 5 mg PO DAILY tamsulosin 0.4 mg capsule 0.4 mg PO DAILY cyanocobalamin (vitamin B-12) 1,000 mcg tablet 500 mcg PO DAILY aspirin 81 mg tablet,delayed release (DR/EC) 162 mg PO QDAY fluticasone propionate [Flonase Allergy Relief] 50 mcg/actuation spray,suspension 1 spray intranasal QDAY Rx Instructions: administer into each nostril pravastatin 40 mg tablet 10 mg PO .Bedtime Qty: 23 4RF Rx Instructions: Take 1/4 tablet every night before going to bed. Follow Up/Referrals: Quan Christian MD [Primary Care Provider] - Stand Alone Forms: [employer] Info Instructions
--- OUTSIDE RECORDS SUMMARY | 2024-03-20 23:47 | XMS_ITS | Continuity of Care Document ---
Author Organization [facility], [facility] Address [address] [place] [address] Care Team Providers Care Animal Rides Manager Name Role Phone [facility] Primary Care Provider Assessment No assessment recorded. Plan of Treatment Reminders Order Date Submit Date Provider Last Modified By Organization Details Last Modified Time Details Appointments ESTAB[facility]ISH ED 10 2023 10:20A M Not available Not available Not available [facility] ED 10 2023 10:50A M Not available Not available Not available Lab None recorded. Referral None recorded. Procedures None recorded. Surgeries None recorded. Imaging None recorded. Medication Orders None recorded. Patient TargetsNo targets recorded. Patient Instructions Encounter Date Encounter Id Patient Instructions Last Modified By Organization Details Last Modified Time 03/20/2024 [id number] passed trial of voiding today, plan rtc 2 weeks for PVR check, take two tamsulosin per day until the follow up visit. [email or web address] Not available 03/20/2024 12:18:47 Reason for Referral None Reported. 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 Not Available [facility] 0 02:03:40 Nocturia 074513855 Active 2013 788.43 : NOCTURIA Not Available [facility] 0 02:03:40 Clinical finding Active 2017 N40.1 : Benign prostatic hyperplasi a with lower urinary tract symp Not Available [facility] 0 02:03:40 Urinary tract obstructi on 2977988 Active 2011 600.21 : HYPERPLASI A OF PROSTATE W/OBST Not Available [facility] 0 02:03:40 Benign prostatic hyperplas ia 923687136 Active 2011 600.21 : HYPERPLASI A OF PROSTATE W/OBST Not Available [facility] 0 02:03:40 Lower urinary tract symptoms 161769555 Active 2011 600.21 : HYPERPLASI A OF PROSTATE W/OBST Not Available [facility] 0 02:03:40 History of malignant neoplasm of kidney 552865623 Active 2017 Z85.528 : Personal history of other malignant neoplasm of kidney Not Available [facility] 0 02:03:40 Retention of urine 962800731 Active 2023 Cj Ribeiro MD [address] [place] [address],[address], [place], [address] [facility] Urology 4 12:18:03 Problem Notes None recorded. Procedures Surgical History Date Name Laterality Status Provider Name and Address Organization Details Recorded Time 4 Fill and Pull/Voiding Trial/T[facility] 03/20/2024 12:17:22 4 [facility] 01/15/2024 11:27:44 Remove tonsils and adenoids completed [facility] U[facility] 03/25/2020 11:41:17 procedure on kidney completed [facility] 03/25/2020 11:41:38 Imaging Results None recorded. Procedure Notes None recorded. Medical Equipment None Reported. Allergies No known drug allergies Medications Name Sig Start Date Stop Date Status Note LastModified by Organization Details LastModified Time pravastatin 40 mg tablet TAKE 1/4 TABLET EVERY NIGHT BEFORE GOING TO BED. active Not Available Not Available No t Available amoxicillin 875 mg tablet TAKE 1 TABLET BY MOUTH EVERY 12 HOURS 03/20 completed Not Available Not Available Not Available prednisolon e acetate 1 % eye drops,suspe nsion INSTILL 1 DROP IN LEFT EYE FOUR TIMES A DAY active Not Available Not Available No t Available tamsulosin 0.4 mg capsule TAKE 1 CAPSULE BY MOUTH EVERY DAY active Not Available Not Available No t Available finasteride 5 mg tablet TAKE ONE TABLET [...] Not Available Not Available No t Available GaviLyte-G 236 gram-22.74 gram-6.74 gram-5.86 gram oral solution PLEASE SEE ATTACHED FOR DETAILED DIRECTION S active Not Available Not Available No t [...] and Address Organization Details Last Updated DateTime 03/20/2024 185.42 cm 24.1 kg/m2 42173.4 g Cj Ribeiro MD [address] [place] [address], [id number] [place] [address] Urology 03/20/2024 11:27:15 Social History Question Answer Notes LastModified by Organizat ion Details LastModified Time Tobacco Smoking Status Former Smoker quit 1968 Florecita Castillo [facility] Urology 03/25/2020 11:40:20 What Is Your Level Of Alcohol Consumption? Occasional Information not available 03/25/2020 How Many Times Per Week Do You Consume Alcohol? 1-2 Times Per Week [email or web address] Information not available 01/11/2023 What Is Your Level Of Caffeine Consumption? None Information not available 03/25/2020 When Did You Quit Smoking? 15+yearssinaureliano reis [email or web address] Information not available 01/11/2023 What Was The Date Of Your Most Recent Tobacco Screening? 03/20/2024 [email or web address] Information not available 03/20/2024 Have You Ever Been Counseled For Unhealthy Alcohol Use? No [email or web address] Information not available 01/11/2023 Do You Use Any Illicit Or Recreational Drugs? No [email or web address] Information not available 01/11/2023 Has Tobacco Cessation Counseling Been Provided? No [email or web address] Information not available 01/11/2023 Do You Or Have You Ever Used Any Other Forms Of Tobacco Or Nicotine? No [email or web address] Information not available 01/11/2023 How Many Days In The Past Year Have You Consumed 5 Or More Drinks? 0 [email or web address] Information not available 01/15/2024 Sex: Unknown Functional Status None recorded. Mental Status None recorded. Family History Relationship Description Onset Age of this Age Resolved Age Notes LastModified by Organization Details LastModified Time Maternal Grandmother Family history of diabetes mellitus [email or web address] Not available 2019 11:39:51 Medical History Condition Response Other N High Blood Pressure N Kidney Stones N Lung Disease N Depression N GERD/Acid Reflux N Diabetes N Sexually Transmitted Infection N Bleeding Disorder N Cancer Y High Cholesterol N Heart Disease N Immunizations Vaccine Type Date Status Provider Name and Address Organization Details Recorded Time pneumococcal polysaccharide PPV23 01/07/2019 [facility] 11:26:19 Influenza, high-dose, quadrivalent, PF 05/12/2022 completed Mialgros [facility] 01/15/2024 11:21:16 COVID-19, mRNA, LNP-S, bivalent, PF, 30 mcg/0.3 mL dose 05/12/2022 [facility] 11:21:16 Influenza, high-dose, quadrivalent, PF 07/09/2023 completed Milagros Jamesracki [facility] 01/15/2024 11:26:57 COVID-19, mRNA, LNP-S, PF, 50 mcg/0.5 mL 07/10/2023 completed [facility]/2024 11:26:57 zoster recombinant 02/29/2020 [facility]23 11:26:19 zoster recombinant 04/08/2019 completed October null, [facility] 01/11/2023 11:26:19 Influenza, high-dose, quadrivalent, PF 03/29/2021 completed October null, [facility] 01/11/2023 11:26:19 Influenza, adjuvanted, quadrivalent, PF 04/07/2020 completed October null, [facility] 01/11/2023 11:26:19 COVID-19, mRNA, LNP-S, PF, 30 mcg/0.3 mL dose 08/17/2020 completed October null, [facility] 01/11/2023 11:26:19 COVID-19, mRNA, LNP-S, PF, 30 mcg/0.3 mL dose 09/07/2020 completed October null, [facility] 01/11/2023 11:26:19 COVID-19, mRNA, LNP-S, PF, 30 mcg/0.3 mL dose 11/29/2021 completed October null, [facility] 01/11/2023 11:26:19 COVID-19, mRNA, LNP-S, PF, 30 mcg/0.3 mL dose 03/29/2021 completed October null, [facility] 01/11/2023 11:26:19 Pneumococcal conjugate PCV 13 02/23/2015 completed October null, [facility] 01/11/2023 11:26:19 Influenza, high-dose, trivalent, PF 04/25/2019 completed October null, [facility] 01/11/2023 11:26:19 Influenza, high-dose, trivalent, PF 04/30/2014 completed October null, [facility] 01/11/2023 11:26:19 Td (adult), 2 Lf tetanus toxoid, preservative free, adsorbed 01/05/2020 completed October null, [facility] 01/11/2023 11:26:19 Past Encounters Encounter ID Performer Location Encounter Start Date Encounter Closed Date Diagnosis/Indication Diagnosis SNOMED-CT Code Diagnosis ICD10 Code [id number] MD [facility] Harvey_Justine [address] [place] [address] 03/20/2024 11:18:47 03/20/2024 12:19:18 History of malignant neoplasm of kidney 281302781 Z85.528 Benign pro static hyperplasia 005575608 N40.1 Retention of urine 65205 4002 R33.9 Health Concerns Section Related Observation LastModified by Organization Detai ls LastModified Time None Recorded Concern Status LastModified by Organization Details LastModified Time None Recorded Payers Encounter Date Sequence Insurance Name Policy Number Policy Olson Covered Member ID Olson Member ID Guarantor Name 03/20/2024 1 [employer] - DOS ON OR AFTER 19 (MEDICARE REPLACEMENT/ ADVANTAGE - PPO) [id number] Sergey Lutz [id number] Sergey Lutz Notes Date Note Type Note Provider Name and Address Organization Details Recorded Time 03/20/2024 text/html HPI Notes: follo w up right partial nephrectomy 2013 had CXR and renal U/S done CXR showed some band-like opacity so CT done and showed likely scarring rec follow up imaging in 3-6 months. had retention episode 03/10 and catheter placed, still has the catheter. taking daily finasteride and tamsulosin for a long time. Cj Ribeiro MD [address], [place], [address], [facility] Urology 03/20/2024 12:19:15
--- OUTSIDE RECORDS SUMMARY | 2024-03-20 23:47 | XMS_ITS | Clinical Summary ---
Author Organization [facility] Address [address] [place] [address] Care Team Providers Care Hot Billet Shear Operator Name Role Phone Clinic, [facility] Primary Care Provider Allergies No [...] Advance Directives For more information, please contact: [phone] * Full Code (Latest Code Status on File) Date Activated Date Inactivated Comments 04/30/2014 3:50 PM 02/03/2019 10:21 AM * Full Code Date Activated Date Inactivated Comments 04/29/2014 2:34 PM 04/30/2014 3:50 PM Care Teams Hot Billet Shear Operator Relationship Specialty Start Date End Date Clinic, [place] [address] PCP - General 09/28/15
--- OUTSIDE RECORDS SUMMARY | 2024-03-20 23:47 | XMS_ITS | Clinical Summary ---
Author Organization [facility] [employer] [facility] Address [place], [place] [address] Care Team Providers Care Clin Nurse Spec Name Role Phone Quan Christian MD Primary Care Provider [phone] Allergies No known active allergies Medications Medication Sig Dispensed Refills Start Date End Date Status finasteride (PROSCAR) 5 mg tablet Take 1 Tablet by mouth once daily. 03/26/2023 Active pravastatin (PRAVACHOL) 40 mg tablet Take 40 mg by mouth once daily. Active cyanocobalamin (VITAMIN B12) 2,500 mcg tablet Take 2,500 mcg by mouth once daily. Active cholecalciferol, vitamin D3, (Cholecalciferol, VitD3,, Bulk,) 100,000 unit/gram powd Mix 2,000 units in liquid then take by mouth once daily. Active aspirin (ECOTRIN) 81 mg enteric coated tablet Take 81 mg by mouth two times daily with meals. Active fluticasone (50 mcg per actuation) nasal solution (FLONASE) Inhale 1 [place] in both nostrils once daily. Active CPAPIndications:O SA (obstructive sleep apnea) CPAP (E0601) machine for home use at pressure: 8-10 cm, Choice of mask (A7030 or A7034) w/full face cushion (A7031) x1/mo, nasal cushion (A7032) x2/mo, or nasal pillows (A7033) x 2/mo; Length of Need: 99 months; Frequency of use: Daily 1 Each 03/18/2024 Active CPAPIndications:O SA (obstructive sleep apnea) CPAP (E0601) machine for home use at pressure: 5-20 , Choice of mask (A7030 or A7034) w/full face cushion (A7031) x1/mo, nasal cushion (A7032) x2/mo, or nasal pillows (A7033) x 2/mo; Length of Need: 99 months; Frequency of use: Daily 1 Each 11 03/18/2024 03/18/2024 Discontinued (*Medication adjustment) Active Problems Problem Noted Date Diagnosed Date Mixed hyperlipidemia 06/15/2023 HTN (hypertension) 06/15/2023 CASIE (obstructive sleep apnea) 06/15/2023 Permanent atrial fibrillation 06/15/2023 Encounters Date Type Department Care Team Description 03/19/2024 [facility] [address] [facility] [address] [place] [phone] Milena Arguello PA Follow Up 03/18/2024 3:00 PM CDT Office Visit [facility] [address] [facility] [address] [place] [address] Milena Arguello PA Follow Up (CASIE on CPAP) 03/18/2024 Orders Only [facility] Scanner 1 scan: (1-Ord) RESMED, COMPLIANCE REPORT, 03/18/2024 03/18/2024 Travel 03/12/2024 Lab Requisition [facility] [phone] Ale Peres MD 02/01/2024 Orders Only [address] [place] [address] Cj Ribeiro MD 1 scan: (1-Ord) diag order 01/22/2024 4:45 PM CDT - 01/22/2024 11:59 PM CDT [facility] [address] [place] [address] Cj Ribeiro MD Other nonspecific abnormal finding of lung field 01/22/2024 Travel 01/16/2024 Orders Only [address] [place] [address] Cj Ribeiro MD 1 scan: (1-Ord) diag order 01/08/2024 10:14 AM CDT - 01/08/2024 11:59 PM CDT Hospital Encounter [address] [address] Cj Ribeiro MD Hx of malignant neoplasm of kidney; History of kidney cancer 01/08/2024 Travel from Last 3 Months Social History Tobacco Use Types Packs/Day Years Used Date Smoking Tobacco: Former Cigarettes 0.4 14 1 536 - 5228 Tobacco Cessation:Counseling Given: Not Answered Alcohol Use Standard Drinks/Week Comments Never 0 (1 standard drink = 0.6 oz pur e alcohol) Social Connections Answer Date Recorded Frequency of Communication with Friends and Fami ly Not on file 06/15/2023 Sex and Gender Information Value Date Recorded Sex Assigned at Not on file Gender Identity Not on file Sexual Orientation Not on file Obstetrics History Last Filed Vital Signs Vital Sign Reading Time Taken Comments Blood Pressure - - Pulse - - Temperature - - Respiratory Rate - - Oxygen Saturation - - Inhaled Oxygen Concentration - - Weight 83 kg (182 lb 14.4 oz) 03/18/2024 2:50 PM CDT Height 185.4 cm (6' 0.99) 03/18/2024 2:50 PM CD T Body Mass Index 24.14 03/18/2024 2:50 PM CDT Plan of Treatment Upcoming Encounters Date Type Department Care Team (Late st Contact Info) Description 07/08/2024 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 [address] [address] Health Maintenance Due Date Last Done Comments Tdap 1950 Depression screening for age 12+ 1951 Tetanus booster 1959 Zoster (shingles) series for age 50+ (1 of 2) 1989 RSV vaccine for adults or pr egnancy (1 - 1-dose 60+ series) 1999 Medicare Wellness for age 65+ 01/21/2004 Pneumococcal series for age 65+ (1 of 1 - PCV) 01/21/2004 COVID-19 vaccine series ( - season) 2024 07/10/2023, 05/12/2022, 11/29/2021 Influenza for age 65+ 03/02/2024 BMI (ht and wt on same day) for age 18+ 03/18/2025 03/18/2024 Procedures Procedure Name Priority Date/Time Associated Diagnosis Comments SCAN-DIAGNOSTIC REPORT 03/18/2024 12:00 AM CDT LAB TRACKING EVENT Routine 03/11/2024 11 :05 AM CDT PATH TISSUE EXAM Routine 03/11/2024 11:[address] CHEST W Routine 01/22/2024 5:17 PM CDT Other nonspecific abnormal finding of lung field CREATININE,ISTAT Timed 01/22/2024 5:04 PM CDT US RENAL AND BLADDER COMPLETE Routine 01/08/2024 11:06 AM CDT Hx of malignant neoplasm of kidney XR CHEST 2 VIEWS PA AND LATERAL Routine 01/08/2024 10:20 AM CDT History of kidney cancer from Last 3 Months Results * SCAN-DIAGNOSTIC REPORT (03/18/2024 12:00 AM CDT) Scanner OTHER * LAB TRACKING EVENT (03/11/2024 11:05 AM CDT) Other (Other) Client Collect / Unknown 03/11/2024 11:05 AM CDT 03/12/2024 1:15 AM CDT Ale Peres MD LAB BILL ONLY [facility] [address] [place] [address], * PATH TISSUE EXAM (03/11/2024 11:05 AM CDT) Case Report Pathology Report ?Case: [id number] ? Authorizing Provider: ??Ale Peres MD ??Collected: ? 03/11/2024 1105 ? Ordering Location: ? [facility] ?Received: ?03/12/2024 0921 ? Pathologist: ? Lico Hurtado MD ? Specimen: ?Ascending Colon Polyp ? 03/14/2024 5:52 PM CDT [facility] Final Diagnosis A) COLON, ASCENDING, POLYPECTOMIES: 1. Tubular adenomas (2) and normal colonic mucosa (clinically, 3 polyps) 2. Negative for high grade dysplasia 3. Per the colonoscopy report: ?? a. Polyp sizes: 2 mm - 6 mm ?? b. Resection: Complete ?? c. Retrieval: Complete 03/14/2024 5:52 PM CDT [facility] Clinical Information Screening colonoscopy. 03/14/2024 5:52 PM CDT [facility] Gross Description A) Received in formalin are 3 polk-pink soft to rubbery polypoid tissues ranging from 3 mm to 11 mm. It is labeled with the patient's name and designated ascending colon. ??The largest tissue is inked green and quadrisected. Entirely submitted in one cassette. ROBERTA Mckeon 03/12/2024 11:27 AM 03/14/2024 5:52 PM CDT [facility] Microscopic Description The final diagnosis is based on microscopic examination of appropriate sections of all specimens. Deeper levels were examined on block A1. 03/14/2024 5:52 PM CDT [facility] Additional Information Interpreted at [facility] Central Laboratory - [address] [facility] [address], [place] [address] 03/14/2024 5:52 PM CDT [facility] Other (Ascending Colon Polyp) 03/11/2024 11:05 AM CDT 03/12/2024 9:21 AM CDT Ale Peres MD PATHOLOGY/[facility] [address] [place] [address], [place] * CT CHEST W (01/22/2024 5:17 PM [...] - 1.11 mg/dL 01/22/2024 5:08 PM CDT [facility] Comment:Caution: Patients ta brandy Hydroxyurea have falsely increased iStat Creatinine results. Verify creatinine results ordering a Creatinine (93621.2) eGFR 59(L) >90 mL/min/1.7 3m2 01/22/2024 5:08 PM CDT [facility] Comment:As of 2021, eG FR is calculated by the CKD-EPI creatinine equation without race adjustment. eGFR can be influenced by muscle mass, exercise, and diet. The reported eGFR is an estimation only and is only applicable if the renal function is stable. Blood BLOOD SPECIMEN / Unknown 01/22/2024 5:04 PM CDT 01/22/2024 5:08 PM CDT Cj Ribeiro MD CHEMISTRY [address] [address] * US RENAL AND BLADDER COMPLETE (01/08/2024 [...] @ Dec ??9 2023 ??4:31PM (Electronically Signed) [email or web address] Narrative 01/08/2024 4:31 PM CDT For Patients: ??As a result of the 21st Century Cures Act, medical imaging exams and procedure reports are released immediately into your electronic medical record. ??You may view this report before your referring provider. ??If you have questions, please contact your health care provider. INDICATION: History of malignant neoplasm of kidney. TECHNIQUE: Ultrasound renal bilateral. Ahque-scale and color Doppler sonographic images were acquired [...] @ Jan 08 2024 4:31PM (Electronically Signed) [email or web address] Cj Ribeiro MD US * XR CHEST [...] cancer. Dictated by Vinayak Min MD @ Mehrdad ??2023 12:59PM (Electronically Signed) [email or web address] Narrative 01/08/2024 12:59 PM CDT For Patients: [...] @ Jan 08 2024 12:59PM (Electronically Signed) [email or web address] Cj Ribeiro MD GENERAL IMAGING from Last 3 Months Care Teams Clin Nurse Spec Relationship Specialty Start Date End Date Quan Christian MD [address] [place] [address] PCP - General Family Practice 05/06/21
--- OUTSIDE RECORDS SUMMARY | 2024-03-20 23:47 | XMS_ITS | Continuity of Care Document ---
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 Patient Instructions Encounter Date Encounter Id Patient Instructions Last Modified By Organization Details Last Modified Time 01/15/2024 [id number] will set up for CT chest without and with, call with report, refill finasteride and tamsulosin dsieracki Not available 01/15/2024 11:44:34 Reason for Referral None Reported. Results Created Date Observation Date Name Description Value Unit Range Abnormal Flag Note LastModifiedBy Organization Detail LastModifiedTime 01/08/20 24 01/08/2024 XR, chest , 2 view No observ ation record ed. [facility] [address] [facility] [place], [address], 01/08/2024 15:03:59 01/08/20 24 01/08/2024 US, renal No observ ation record ed. [facility] [address] [facility] [place], [address], 01/10/2024 09:31:12 01/29/20 24 01/22/2024 CT, chest , w/wo contr ast No observ ation [facility] ed[email or web address] [address] [facility] [place], [address], 02/01/2024 09:53:02 Result Notes None recorded. 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 Not Available [facility] 02:03[facility]40 Nocturia 353053550 Active 2013 788.43 : NOCTURIA Not Available [facility] 0 02:03:40 Clinical finding Active 2017 N40.1 : Benign prostatic hyperplasi a with lower urinary tract symp Not Available [facility] 0 02:03:40 Urinary tract obstructi on 3678868 Active 2011 600.21 : HYPERPLASI A OF PROSTATE W/OBST Not Available [facility] 0 02:03:40 Benign prostatic hyperplas ia 030857757 Active 2011 600.21 : HYPERPLASI A OF PROSTATE W/OBST Not Available [facility] 0 02:03:40 Lower urinary tract symptoms 233629817 Active 2011 600.21 : HYPERPLASI A OF PROSTATE W/OBST Not Available [facility] 0 02:03:40 History of malignant neoplasm of kidney 516049156 Active 2017 Z85.528 : Personal history of other malignant neoplasm of kidney Not Available [facility] 0 02:03:40 Retention of urine 670192998 Active 2023 Cj Ribeiro MD [address], [place], [address] , [facility] 4 12:18:03 Problem Notes None recorded. Procedures Surgical History Date Name Laterality Status Provider Name and Address Organization Details Recorded Time 4 Fill and Pull/Voiding Trial/TOV [facility] 12:17:22 4 Bladder Scan [facility]24 11:27:44 Remove tonsils and adenoids completed [facility] 03/25/2020 11:41:17 procedure on kidney completed [facility] 03/25/2020 11:41:38 Imaging Results None recorded. Procedure [...] Updated DateTime 01/15/2024 185.42 cm 24.4 kg/m2 83143.59 g Milagros Skinner [facility] 01/15/2024 11:21:11 Social History Question Answer Notes LastModified by Organizat ion Details LastModified Time Tobacco Smoking Status Former Smoker quit [email or web address] silvestre [facility] 03/25/2020 11:40:20 What Is Your Level Of Alcohol Consumption? Occasional Information not available 03/25/2020 How Many Times Per Week Do You Consume Alcohol? 1-2 Times Per Week [email or web address] Information not available 01/11/2023 What Is Your Level Of Caffeine Consumption? None Information not available 03/25/2020 When Did You Quit Smoking? 15+yearssincel astcigarette [email or web address] Information not available 01/11/2023 What Was The Date Of Your Most Recent Tobacco Screening? 03/20/2024 [email or web address] Information not available 03/20/2024 Have You Ever Been Counseled For Unhealthy Alcohol Use? No [email or web address] Information not available 01/11/2023 Do You Use Any Illicit Or Recreational Drugs? No [email or web address] Information not available 01/11/2023 Has Tobacco Cessation Counseling Been Provided? No [email or web address] Information not available 01/11/2023 Do You Or Have You Ever Used Any Other Forms Of Tobacco Or Nicotine? No [email or web address] Information not available 01/11/2023 How Many Days [...] High Blood Pressure N Kidney Stones N Depression N Lung Disease N GERD/Acid Reflux N Diabetes N Sexually Transmitted Infection N Bleeding Disorder N Cancer Y High Cholesterol N Heart Disease N Immunizations Vaccine Type Date Status Provider Name and Address Organization Details Recorded Time pneumococcal polysaccharide PPV23 01/07/2019 completed Eveliaoctober null, [facility] 01/11/2023 11:26:19 Influenza, high-dose, quadrivalent, PF 05/12/2022 completed Rubia Susanne null, [facility] 01/15/2024 11:21:16 COVID-19, mRNA, LNP-S, bivalent, PF, 30 mcg/0.3 mL dose 05/12/2022 completed Milagros Skinner null, [facility] 01/15/2024 11:21:16 Influenza, high-dose, quadrivalent, PF 07/09/2023 completed Franciscozera cki null, [facility] 01/15/2024 11:26:57 COVID-19, mRNA, LNP-S, PF, 50 mcg/0.5 mL 07/10/2023 completed Milagros Migueli null, [facility] 01/15/2024 11:26:57 zoster recombinant 02/29/2020 completed October null, [facility] 01/11/2023 11:26:19 zoster recombinant 04/08/2019 completed Evelia October null, [facility] 01/11/2023 11:26:19 Influenza, high-dose, quadrivalent, PF 03/29/2021 completed Evelia October null, [facility] 01/11/2023 11:26:19 Influenza, adjuvanted, quadrivalent, PF 04/07/2020 completed Evelia October null, [facility] 01/11/2023 11:26:19 COVID-19, mRNA, LNP-S, PF, 30 mcg/0.3 mL dose 08/17/2020 completed Eveliaoctober null, [facility] 01/11/2023 11:26:19 COVID-19, mRNA, LNP-S, PF, 30 mcg/0.3 mL dose 09/07/2020 completed Evelia October, [facility] 01/11/2023 11:26:19 COVID-19, mRNA, LNP-S, PF, 30 mcg/0.3 mL dose 11/29/2021 completed Evelia October, [facility] 01/11/2023 11:26:19 COVID-19, mRNA, LNP-S, PF, 30 mcg/0.3 mL dose 03/29/2021 completed October, [facility] 01/11/2023 11:26:19 Pneumococcal conjugate PCV 13 02/23/2015 completed October, [facility] 01/11/2023 11:26:19 Influenza, high-dose, trivalent, PF 04/25/2019 completed October, [facility] 01/11/2023 11:26:19 Influenza, high-dose, trivalent, PF 04/30/2014 completed Eveliaoctober, [facility] 01/11/2023 11:26:19 Td (adult), 2 Lf tetanus toxoid, preservative free, adsorbed 01/05/2020 completed Evelia October, [facility] 01/11/2023 11:26:19 Past Encounters Encounter ID Performer Location Encounter Start Date Encounter Closed Date Diagnosis/Indication Diagnosis SNOMED-CT Code Diagnosis ICD10 Code [id number] Milagros [facility] [address] [place] [address] 01/15/2024 11:13:06 01/30/2024 13:58:03 History of malignant neoplasm of kidney 384976726 Z85.528 Benign pro static hyperplasia 359786988 N40.1 Health Concerns Section Related Observation LastModified by Organization Detai ls LastModified Time None Recorded Concern Status LastModified by Organization Details LastModified Time None Recorded Payers Encounter Date Sequence Insurance Name Policy Number Policy Olson Covered Member ID Olson Member ID Guarantor Name 01/15/2024 1 [employer] - DOS ON OR AFTER 19 (MEDICARE REPLACEMENT/ ADVANTAGE - PPO) [id number] 1 Sergey Lutz [id number] Sergey Woods Pramoddorothy Notes Date Note Type Note Provider Name and Address Organization Details Recorded Time 01/15/2024 text/html HPI Notes: follo w up renal cancer s/p right partial nephrectomy about 7 years ago. CXR showing possible right upper lobe lesion, renal U/S stable. no heme/dysuria. COLE Ortiz - [facility] 01/15/2024 11:44:48
--- OUTSIDE RECORDS SUMMARY | 2024-03-20 23:47 | XMS_ITS | Referral Summary ---
Author Organization [facility] Address [address] [place] [address] Care Team Providers Care Dust Handler Name Role Phone Clinic, [facility] Primary Care Provider Allergies No known [...] Advance Directives For more information, please contact: [phone] * Full Code (Latest Code Status on File) Date Activated Date Inactivated Comments 04/30/2014 3:50 PM 02/03/2019 10:21 AM * Full Code Date Activated Date Inactivated Comments 04/29/2014 2:34 PM 04/30/2014 3:50 PM Care Teams Dust Handler Relationship Specialty Start Date End Date [facility], [address] [address] PCP - General 09/28/15
--- OUTSIDE RECORDS SUMMARY | 2024-03-20 23:47 | XMS_ITS | Data Portability ---
Author Organization [facility], [facility] Address [address] [facility] [address] [place] [address] Care Team Providers Care Barrel Stave Inspector Name Role Phone [facility] Primary Care Provider Assessment No assessment recorded. Plan of Treatment Reminders Order Date Submit Date Provider Last Modified By Organization Details Last Modified Time Details Appointments ESTABLISH ED 10 2023 10:20A M Not available Not available Not available ESTABLISH ED 10 2023 10:50A M Not available Not available Not available Lab urinalysi s, dipstick 2020 021 [email or web address] [facility], [address], [address], [place], [address], 01/13/2021 10:39:59 urinalysi s, dipstick 2021 022 [email or web address] [facility], [address], [address], [place], [address], 01/10/2022 12:03:45 Referral None recorded. Procedures None recorded. Surgeries None recorded. Imaging None recorded. Medication Orders finasteri de 5 mg tablet 2020 021 [facility] #[id number], [address] [facility], [place], [address], 01/13/2021 10:57:45 tamsulosi n 0.4 mg capsule 2020 021 [facility] [address] [place], [address], 01/13/2021 10:57:45 tamsulosi n 0.4 mg capsule 2021 022 [facility]13[facility], [address] [place], [address], 04/03/2022 16:05:19 finasteri de 5 mg tablet 2021 022 [facility], [address] [place], [address], 04/03/2022 16:05:57 finasteri de 5 mg tablet 2022 023 [facility]13[facility], [address] [place], [address], 01/11/2023 11:59:13 tamsulosi n 0.4 mg capsule 2023 024 [facility], [address] [place], [address], 01/15/2024 11:43:30 finasteri de 5 mg tablet 2023 024 [facility], [address] [place], [address], 01/15/2024 11:43:32 Patient TargetsNo targets recorded. Patient Instructions Encounter Date Encounter Id Patient Instructions Last Modified By Organization Details Last Modified Time 01/13/2021 [id number] no sign of recurrence. continue finasteride and tamsulosin, plan rtc 1 year with renal U/S and PA/lateral CXR. [email or web address] Not available 01/13/2021 10:58:44 01/10/2022 [id number] refill tamsulosi n and finasteride sent. plan recheck 1 year with CXR and renal U/S. [email or web address] Not available 01/10/2022 12:16:44 01/11/2023 [id number] refill finasteride sent, OK on tamsulosin for now. plan rtc 1 year with CXR and renal U/S [email or web address] Not available 01/11/2023 11:59:51 01/15/2024 [id number] will set up for CT chest without and with, call with report, refill finasteride and tamsulosin [email or web address] Not available 01/15/2024 11:44:34 03/20/2024 [id number] passed trial of voiding today, plan rtc 2 weeks for PVR check, take two tamsulosin per day until the follow up visit. [email or web address] Not available 03/20/2024 12:18:47 Reason for Referral None Reported. Results Created Date Observation Date Name Description Value Unit Range Abnormal Flag Note LastModifiedBy Organization Detail LastModifiedTime 01/13/2021 urina lysis , dipst ick pH-Status 5.5 Not Available [address], [place], [address], 01/13/2021 10:34:10 01/11/20 22 01/10/2022 urina lysis , dipst ick Color-Status Yellow Not Available [address], [place], [address], 01/10/2022 12:02:52 01/11/20 22 01/10/2022 urina lysis , dipst ick Protein-Stat us 7.0 Not Available [address], [place], [address], 01/10/2022 12:02:52 01/07/20 21 01/06/2021 XR, chest , 2 view No observ ation record ed. [email or web address] [facility] [address], [place], [address], 01/06/2021 13:43:06 01/07/20 21 01/06/2021 US, renal No observ ation record ed. [email or web address] Not Available 01/07 09:35:07 01/10/20 22 01/04/2022 US, renal No observ ation record ed. [facility] [address] [facility] [place], [address], 01/09/2022 12:48:50 01/10/20 22 01/04/2022 XR, chest , 2 view No observ ation record ed. [email or web address] [facility] [address] [facility] [place], [address], 01/09/2022 12:48:51 01/02/20 23 01/01/2023 XR, chest , 2 view No observ ation record ed. [email or web address] [facility] [address] [facility] [place], [address], 01/04/2023 09:59:32 01/02/20 23 01/01/2023 US, renal No observ ation record ed. [facility] [address] [facility] [place], [address], 01/04/2023 09:59:33 01/08/20 24 01/08/2024 XR, chest , 2 view No observ ation record ed. [facility] [address] [facility] [place], [address], 01/08/2024 15:03:59 01/08/20 24 01/08/2024 US, renal No observ ation record ed. [facility] [address] [facility] [address] [place], [address], 01/10/2024 09:31:12 01/29/20 24 01/22/2024 CT, chest , w/wo contr ast No observ ation record ed. [email or web address] [facility] [address] [facility] [place], [address], 02/01/2024 09:53:02 Result Notes None recorded. 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 Not Available [facility] 0 02:03:40 Nocturia 341602081 Active 2013 788.43 : NOCTURIA Not Available [facility] 0 02:03:40 Clinical finding Active 2017 N40.1 : Benign prostatic hyperplasi a with lower urinary tract symp Not Available [facility] 0 02:03:40 Urinary tract obstructi on 2118733 Active 2011 600.21 : HYPERPLASI A OF PROSTATE W/OBST Not Available [facility] 0 02:03:40 Benign prostatic hyperplas ia 576593410 Active 2011 600.21 : HYPERPLASI A OF PROSTATE W/OBST Not Available [facility] 0 02:03:40 Lower urinary tract symptoms 984501536 Active 2011 600.21 : HYPERPLASI A OF PROSTATE W/OBST Not Available [facility] 0 02:03:40 History of malignant neoplasm of kidney 039135334 Active 2017 Z85.528 : Personal history of other malignant neoplasm of kidney Not Available [facility] 0 02:03:40 Retention of urine 224169727 Active 2023 Cj Ribeiro MD [address] [place] [address],[address], [place], [address] , [facility] 4 12:18:03 Problem Notes None recorded. Procedures Surgical History Date Name Laterality Status Provider Name and Address Organization Details Recorded Time 4 Fill and Pull/Voiding Trial/TOV completed Milagros Skinner [facility] 03/20/2024 12:17:22 4 Bladder Scan completed Milagros Skinner [facility] 01/15/2024 11:27:44 Remove tonsils and adenoids completed Chase Millsludin Castillo [facility] 03/25/2020 11:41:17 procedure on kidney completed Chase Millsludin Hernandezamud [facility] 03/25/2020 11:41:38 Imaging Results Imaging Date Name Status LastModified by Sanya gann Details LastModified Time 01/06/2021 XR, chest, 2 view completed [email or web address] [facility] [address], [place], [address], 01/06/2021 13:43:06 01/06/2021 US, renal completed [email or web address] Information no t available 01/07/2021 09:35:07 01/04/2022 US, renal completed [email or web address] [facility] [address] [place], [place] [address] [place], [address], 01/09/2022 12:48:50 01/04/2022 XR, chest, 2 view completed [email or web address] [facility] [address] [place], [place] [address] [place], [address], 01/09/2022 12:48:51 01/01/2023 XR, chest, 2 view completed [email or web address] [address] [place], [address], 01/04/2023 09:59:32 01/01/2023 US, renal completed [email or web address] [address] [place], [address], 01/04/2023 09:59:33 01/08/2024 XR, chest, 2 view completed [address] [place], [address], 01/08/2024 15:03:59 01/08/2024 US, renal completed [address] [place], [address], 01/10/2024 09:31:12 01/22/2024 CT, chest, w/wo contrast completed [facility] [address] [place], [address], 02/01/2024 09:53:02 Procedure Notes None recorded. Medical [...] Updated DateTime 01/10/2022 185.42 cm 24.4 kg/m2 54135.59 g Cj Ribeiro MD [address] [facility],[address], [place], [address] [place] [address] 01/10/2022 12:02:27 Date Recorded Body height Body mass index (BMI) Body weight Provider Name and Address Organization Details Last Updated DateTime 01/11/2023 185.42 cm 24.4 kg/m2 50793.59 g Evelia Dickens [facility] 01/11/2023 11:26:14 Date Recorded Body height Body mass index (BMI) Body weight Provider Name and Address Organization Details Last Updated DateTime 01/15/2024 185.42 cm 24.4 kg/m2 20925.59 g Franciscolissy Jamesambrose [facility] 01/15/2024 11:21:11 Date Recorded Body height Body mass index (BMI) Body weight Provider Name and Address Organization Details Last Updated DateTime 03/20/2024 185.42 cm 24.1 kg/m2 28014.4 g Cj Ribeiro MD [address] [place] [address] 03/20/2024 11:27:15 Date Recorded Body height Body mass index (BMI) Body weight Provider Name and Address Organization Details Last Updated DateTime 01/13/2021 185.42 cm 24 kg/m2 17260.81 g Cj Ribeiro MD [address] [place] [address] 01/13/2021 10:38:16 Social History Question Answer Notes LastModified by Organizat ion Details LastModified Time Tobacco Smoking Status [facility]oker quit [facility] 03/25/2020 11:40:20 What Is Your Level Of Alcohol Consumption? Occasional Information not available 03/25/2020 How Many Times Per Week Do You Consume Alcohol? 1-2 Times Per Week [email or web address] Information not available 01/11/2023 What Is Your Level Of Caffeine Consumption? None Information not available 03/25/2020 When Did You Quit Smoking? 15+yearssinaureliano reis [email or web address] Information not available 01/11/2023 What Was The Date Of Your Most Recent Tobacco Screening? 03/20/2024 Information not available 03/20/2024 Have You Ever Been Counseled For Unhealthy Alcohol Use? No [email or web address] Information not available 01/11/2023 Do You Use Any Illicit Or Recreational Drugs? No [email or web address] Information not available 01/11/2023 Has Tobacco Cessation Counseling Been Provided? No [email or web address] Information not available 01/11/2023 Do You Or Have You Ever Used Any Other Forms Of Tobacco Or Nicotine? No [email or web address] Information not available 01/11/2023 How Many Days [...] Time pneumococcal polysaccharide PPV23 01/07/2019 completed Evelia silvestre, [facility] 01/11/2023 11:26:19 Influenza, high-dose, quadrivalent, PF 05/12/2022 [facility] 11:21:16 COVID-19, mRNA, LNP-S, bivalent, PF, 30 mcg/0.3 mL dose 05/12/2022 [facility] 11:21:16 Influenza, high-dose, quadrivalent, PF 07/09/2023 completed [facility] 01/15/2024 11:26:57 COVID-19, mRNA, LNP-S, PF, 50 mcg/0.5 mL 07/10/2023 [facility]2024 11:26:57 zoster recombinant 02/29/2020 completed Evelia October nirmala [facility] 01/11/2023 11:26:19 zoster recombinant 04/08/2019 [facility]/11[facility]23 11:26:19 Influenza, high-dose, quadrivalent, PF 03/29/2021 completed October null, [facility] 01/11/2023 11:26:19 Influenza, adjuvanted, quadrivalent, PF 04/07/2020 completed October null, [facility] 01/11/2023 11:26:19 COVID-19, mRNA, LNP-S, PF, 30 mcg/0.3 mL dose 08/17/2020 completed October null, [facility] 01/11/2023 11:26:19 COVID-19, mRNA, LNP-S, PF, 30 mcg/0.3 mL dose 09/07/2020 completed October null, [facility] 01/11/2023 11:26:19 COVID-19, mRNA, LNP-S, PF, 30 mcg/0.3 mL dose 11/29/2021 completed October null, [facility] 01/11/2023 11:26:19 COVID-19, mRNA, LNP-S, PF, 30 mcg/0.3 mL dose 03/29/2021 completed October null, [facility] 01/11/2023 11:26:19 Pneumococcal conjugate PCV 13 02/23/2015 completed October null, [facility] 01/11/2023 11:26:19 Influenza, high-dose, trivalent, PF 04/25/2019 completed October null, [facility] 01/11/2023 11:26:19 Influenza, high-dose, trivalent, PF 04/30/2014 completed October null, [facility] 01/11/2023 11:26:19 Td (adult), 2 Lf tetanus toxoid, preservative free, adsorbed 01/05/2020 completed October null, [facility] 01/11/2023 11:26:19 Past Encounters Encounter ID Performer Location Encounter Start Date Encounter Closed Date Diagnosis/Indication Diagnosis SNOMED-CT Code Diagnosis ICD10 Code [id number] Cj Ribeiro MD [facility] [place] [address] [place] [address] 03/25/2020 11:35:02 04/05/2020 11:37:27 History of malignant neoplasm of kidney 423079368 Z85.528 [id number] Cj Ribeiro MD [address] [place] [address] 01/13/2021 10:27:57 01/14/2021 16:40:17 History of malignant neoplasm of kidney 451478761 Z85.528 Lower urin bradly tract symptoms due to benign prostatic hypertrophy 2639871921 9101 N40.1 [id number] Cj Ribeiro MD [address] [address] 01/10/2022 11:50:11 01/11/2022 15:52:45 Lower urinary tract symptoms due to benign prostatic hypertrophy 2257476907 9101 N40.1 History of malignant neoplasm of kidney 264175030 Z85.528 [id number] Cj Ribeiro MD [address] [address] 01/11/2023 11:16:09 01/18/2023 09:14:35 History of malignant neoplasm of kidney 929915383 Z85.528 Lower urin bradly tract symptoms due to benign prostatic hypertrophy 7448846023 9101 N40.1 [id number] Milagros Skinner [address] [address] 01/15/2024 11:13:06 01/30/2024 13:58:03 History of malignant neoplasm of kidney 867526649 Z85.528 Benign pro static hyperplasia 588751417 N40.1 [id number] Cj Ribeiro MD [address] [address] 03/20/2024 11:18:47 03/20/2024 12:19:18 History of malignant neoplasm of kidney 231749972 Z85.528 Benign pro static hyperplasia 449585030 N40.1 Retention of urine 70795 4002 R33.9 Health Concerns Section Related Observation LastModified by Organization Detai ls LastModified Time None Recorded Concern Status LastModified by Organization Details LastModified Time None Recorded Advance Directives Directive None Recorded Payers Encounter Date Sequence Insurance Name Policy Number Policy Olson Covered Member ID Olson Member ID Guarantor Name 01/13/2021 1 [employer] - DOS ON OR AFTER 19 (MEDICARE REPLACEMENT/ ADVANTAGE - HMO) [id number] Sergey Lutz [id number] Sergey Trejoemersonyk 01/10/2022 1 [employer] - DOS ON OR AFTER 19 (MEDICARE REPLACEMENT/ ADVANTAGE - HMO) [id number] Sergey Woods Tomczyk [id number] Sergey Woods Tomczyk 01/11/2023 1 [employer] - DOS ON OR AFTER 19 (MEDICARE REPLACEMENT/ ADVANTAGE - HMO) [id number] Sergey Trejoczyk [id number] Sergey Woods Tomczyk 01/15/2024 1 [employer] - DOS ON OR AFTER 19 (MEDICARE REPLACEMENT/ ADVANTAGE - PPO) [id number] Sergey Benavidezyk [id number] Sergey Trejoczyk 03/20/2024 1 [employer] - DOS ON OR AFTER 19 (MEDICARE REPLACEMENT/ ADVANTAGE - PPO) [id number] Sergey Trejoemersonyk [id number] Sergey Woods Pramoddorothy Notes Date Note Type Note Provider Name and Address Organization Details Recorded Time 01/13/2021 text/html HPI Notes: almos t 7 years post right partial nephrectomy for RCC. renal U/S and CXR no recurrence seen last week. UA clear. voiding OK taking finasteride and tamsulosin. Cj Ribeiro MD [address] [place] [address], [address], [facility] 01/13/2021 10:59:02 01/10/2022 text/html HPI Notes: follo w up right partial nephrectomy for RCC in 2013. U/S and CXR ok last week. needs refills on tamsulosin and finasteride. took some calcium and had a lot of nocturia with it so stopped. no heme/dysuria. Cj Ribeiro MD [address] [place] [address],[address] [place] [address], [address], [facility] 01/10/2022 12:18:51 01/11/2023 text/html HPI Notes: follo w up renal cancer s/p right partial nephrectomy about 6 years ago. CXR and renal U/S look OK, has a couple stone one on each side. no sx's. Cj Ribeiro MD [address] [facility],[address], [place], [address], [facility] 01/11/2023 12:00:38 01/15/2024 text/html HPI Notes: follo w up renal cancer s/p right partial nephrectomy about 7 years ago. CXR showing possible right upper lobe lesion, renal U/S stable. no heme/dysuria. Milagros silvestre [facility] 01/15/2024 11:44:48 03/20/2024 text/html HPI Notes: follo w up right partial nephrectomy 2014 had CXR and renal U/S done CXR showed some band-like opacity so CT done and showed likely scarring rec follow up imaging in 3-6 months. had retention episode 03/10 and catheter placed, still has the catheter. taking daily finasteride and tamsulosin for a long time. Cj Ribeiro MD [address] [facility], [place], [address], [facility] 03/20/2024 12:19:15
== END 2024-03-21 00:14 | disposition home or self-care (01) ==
LOC: ED 23:45
PROVIDERS: Emergency Provider Internal Medicine; PCP Family Medicine
DX: N13.9 Obstructive and reflux uropathy, unspecified (principal)
CPT/HCPCS: 51798; 99283

== ENCOUNTER 2024-10-08 10:48 | Outpatient (CLI) | payer MEDICARE, SELFPAY | END 2024-10-08 10:49 | disposition home or self-care (01) | LOC: NFLDREF 10-13 16:53 | PROVIDERS: PCP Family Medicine; Referring Provider Family Medicine; Visit Provider Family Medicine | DX: R05.9 Cough, unspecified (principal); R68.83 Chills (without fever); N39.0 Urinary tract infection, site not specified; R50.9 Fever, unspecified; J40 Bronchitis, not specified as acute or chronic | CPT/HCPCS: 87086 ==

== ENCOUNTER 2025-02-10 09:00 | Outpatient (CLI) | payer MEDICARE, SELFPAY | END 2025-02-10 09:01 | disposition home or self-care (01) | LOC: NFLDREF 02-13 18:30 | PROVIDERS: PCP Family Medicine; Referring Provider Family Medicine; Visit Provider Family Medicine | DX: E78.5 Hyperlipidemia, unspecified (principal); E53.8 Deficiency of other specified B group vitamins; Z12.5 Encounter for screening for malignant neoplasm of prostate | CPT/HCPCS: 80053; 80061; 82607; G0103 ==

== ENCOUNTER 2025-02-12 11:45 | Outpatient (CLI) | payer MEDICARE, SELFPAY | END 2025-02-12 11:46 | disposition home or self-care (01) | LOC: LKVREF 11:46 | PROVIDERS: PCP Family Medicine; Visit Provider Family Medicine | DX: I48.91 Unspecified atrial fibrillation (principal) | CPT/HCPCS: 84443 ==

== ENCOUNTER 2025-03-18 18:52 | Outpatient (CLI) | payer MEDICARE, SELFPAY ==
--- NOTE | 2025-03-18 19:00 | CRLHL7_ITS ---
For Patients: As a result of the Century Cures Act, medical imaging exams and procedure reports are released immediately into your electronic medical record. You may view this report before your referring provider. If you have questions, please contact your health care provider. Indication: Unsteadiness. Technique: Multiplanar, multisequence MRI of the brain was performed without intravenous contrast. Comparison: None relevant available. Findings: Mild thinning of the corpus callosum. The pituitary gland clivus appear intact. Mild degenerative change visualized upper cervical spine. There is no restricted diffusion. No intracranial hemorrhage. The ventricles are proportionate to the cerebral sulci. The 4th ventricle appears midline. The basal cisterns appear patent. No abnormal extra-axial fluid collection identified. Moderate parenchymal volume loss. Scattered T2 FLAIR hyperintense foci within the subcortical and periventricular white matter, favored to represent chronic ischemic microvascular disease. There is no intracranial mass, abnormal mass-effect or midline shift identified. Major intracranial vascular flow voids appear grossly intact. Both globes are preserved. Mild paranasal sinus mucosal disease. Impression: 1. No acute/subacute infarct. 2. Moderate parenchymal volume loss. 3. Mild chronic ischemic microvascular disease. Dictated by Anish Butt MD @ 03/19/2025 9:54:14 AM (Electronically Signed)
== END 2025-03-18 18:53 | disposition home or self-care (01) ==
LOC: MRI 18:53
PROVIDERS: PCP Family Medicine; Visit Provider Family Medicine
DX: R26.81 Unsteadiness on feet (principal); I67.82 Cerebral ischemia; R29.818 Other symptoms and signs involving the nervous system; G60.9 Hereditary and idiopathic neuropathy, unspecified; I48.91 Unspecified atrial fibrillation
CPT/HCPCS: 70551

== ENCOUNTER 2025-03-26 10:27 | Outpatient (CLI) | payer MEDICARE, SELFPAY ==
[2025-03-26 13:23] LABS: Appearance Urine Clear (Clear)
== END 2025-03-26 10:28 | disposition home or self-care (01) ==
LOC: NPINS 10:28
PROVIDERS: PCP Family Medicine; Visit Provider Urology
DX: R30.0 Dysuria (principal)
CPT/HCPCS: 81001; 87086

== ENCOUNTER 2025-06-09 06:27 | Day surgery (SDC) | payer MEDICARE, SELFPAY ==
[2025-06-09 06:35] VITALS: BMI 25.0
[2025-06-09 06:45] VITALS: BP 141/81; PULSE 88; RESP 16; TEMP 36.6; O2SAT 96
[2025-06-09] MEDS: SODIUM CHLORIDE 0.9 % (FLUSH) 10 ML SYRINGE IVF (06:45)
[2025-06-09] MEDS: LACTATED RINGERS 1000 ML 1,000 ML 100 ML IV (06:45)
--- NOTE | 2025-06-09 07:43 | CRLHL7_ITS ---
For Patients: As a result of the Century Cures Act, medical imaging exams and procedure reports are released immediately into your electronic medical record. You may view this report before your referring provider. If you have questions, please contact your health care provider. Indication: Right lower extremity swelling. Cellulitis. Technique: Ultrasound examination the right lower extremity venous system was performed. The left common femoral vein was also studied. Comparison: None Findings: The left common femoral vein is patent. The following structures were studied on the right hand show no evidence of venous thrombosis: Common femoral vein, greater saphenous vein, deep femoral vein, femoral vein, popliteal vein, peroneal vein and posterior tibial vein. Impression: No evidence of right lower extremity deep venous thrombosis. The left common femoral vein is patent. Dictated by Marcell Murillo MD @ 06/09/2025 8:16:19 AM (Electronically Signed)
--- NOTE | 2025-06-09 07:55 | SUR.PREOP ---
Patient's surgery has been postponed until 06/12 due to possible cellulitis in right leg. Ancef received per MD order in SDS before discharge. Patient borrowing a walker from hospital until they can get one that is tall enough. Bedside US competed. MD would like patient to start prescription antibiotics tonight. Patient and his aware of 0830 arrival time on Sunday and not to eat after midnight and clear liquids are okay up to 2 hours before procedure. Patient and his verbalize understanding and are agreeable to the plan of care.
--- NOTE | 2025-06-09 10:35 | W.PM.H&PU ---
History & Physical Update History & Physical Update H&P Reviewed and patient assessed: The following changes are noted below H&P Updates: Patient was seen preoperatively and was noted to have swelling and erythema extending from the ankle to the mid curtis. He also complained of pain in his calf. He denies any fevers or chills. However, his exam findings were concerning for cellulitis possible deep vein thrombosis. Duplex ultrasound was performed which ruled out DVT. Due to the concern for cellulitis on his operative leg, decision was made to treat him with oral antibiotics and postpone surgery. He was given a dose of Ancef intravenously and was provided with a prescription for Keflex 500 mg which he was instructed to take 4 times daily. Recommend ice elevation to help control pain and swelling. He will be discharged to home and we will plan to have him return for surgery in 3 days.
== END 2025-06-09 08:30 | disposition home or self-care (01) ==
PROVIDERS: PCP Family Medicine; Visit Provider Orthopaedic Surgery
DX: Z53.09 Procedure and treatment not carried out because of other contraindication (principal); L03.115 Cellulitis of right lower limb; M79.661 Pain in right lower leg
CPT/HCPCS: 93971; J0690; J7120

== ENCOUNTER 2025-06-12 08:24 | Day surgery (SDC) | payer MEDICARE, SELFPAY ==
[2025-06-12] VITALS (14 sets, daily range): BP systolic 107–144; BP diastolic 63–87; PULSE 73–83; RESP 14–16; TEMP 36.4–37; O2SAT 92–98; BMI 26.2
[2025-06-12] MEDS: LACTATED RINGERS 1000 ML 1,000 ML 100 ML IV (09:15)
--- NOTE | 2025-06-12 09:16 | W.PM.H&PU ---
History & Physical Update History & Physical Update H&P Reviewed and patient assessed: No changes noted
--- NOTE | 2025-06-12 09:16 | PM.ORPRC ---
Procedure Note Date of procedure: 06/12/25 Procedure: PREOPERATIVE DIAGNOSES: 1. Right ankle distal fibula fracture, closed, displaced POSTOPERATIVE DIAGNOSES: 1. Right ankle distal fibula fracture, closed, displaced PROCEDURE: 1. Right ankle distal fibula open reduction with internal fixation. 2. Intraoperative fluoroscopy <53 minutes (CPT CODE 7600) SURGEON: Vern Galindo MD PAID SEARCH MARKETING ANALYST: Sue Pozo P.A.-C.; Of note, an workers compensation claims assistant was critical for this case to aide in patient positioning, leg manipulation, tissue retraction, closure, and splinting. ANESTHESIA: [Spinal +/- popliteal block.] IMPLANTS: Arthrex distal fibular locking plate with 3.0 distal locking screws and 3.5mm proximal locking and nonlocking screws. TOURNIQUET: 44 minutes at 250 mmHg. INDICATIONS: The patient is a pleasant 85-year-old male who sustained a right ankle injury in the recent past. Workup included x-rays which revealed a displaced distal fibula fracture. Given these findings, surgery was recommended to stabilize the ankle and allow for anatomic healing. FINDINGS: Closed, displaced lateral malleolus ankle fracture; intact syndesmosis. PROCEDURE: Following a thorough discussion of the risks, benefits, and alternatives to surgery; informed consent was obtained, and the operative extremity was marked. Regional nerve block was performed by anesthesia staff . The patient was then brought to the operating room, where [spinal] anesthesia was administered. He was then placed supine on the operating table. 2 g IV Ancef was administered preoperatively for prophylaxis . The operative extremity was then prepped and draped in the appropriate sterile fashion . A surgical time-out was performed confirming patient identity, surgical site, and surgical procedure. The operative extremity was elevated and exsanguinated, and the tourniquet inflated to 250 mmHg. A longitudinal incision was made overlying the distal fibula. Sharp incision was carried through skin and subcutaneous tissue, while protecting any crossing neurologic structures. The fracture was identified, and cleared of interposed periosteum and fracture hematoma. The surgical site was thoroughly irrigated with normal saline. The fracture was reduced and temporarily held with reduction clamps. A 5 hole distal fibular locking plate was then selected and provisionally fixed to the distal fibula with BB tacks. Fractures fixed proximally with a 3.5 mm bicortical nonlocking screw. It was then fixed distally with multiple 3.0 mm unicortical locking screws. 2 additional 3.5 mm locking screws were then placed proximal to the fracture site. Final fluoroscopic images were obtained which confirmed a in topic reduction and excellent position of plate and screws. External rotation stress was applied and syndesmosis was confirmed to be intact and stable. At this stage, the wound was thoroughly irrigated with normal saline. Deep subcutaneous tissues were closed over the plate with #0 Vicryl [id number] interrupted sutures. The tourniquet was deflated. Total tourniquet time was 44 minutes. Hemostasis achieved with electrocautery. Subcutaneous tissues were closed with 2-0 Vicryl for the subcutaneous tissues, and running 3-0 nylon for the skin. Sterile dressings were applied and right lower extremity was placed into a cam boot. The patient was awoken from anesthesia and transferred to the PACU in stable condition. PLAN: 1. Ice and elevate operative extremity. 2. Keep dressings clean and dry. 3. Tylenol and oxycodone as needed for pain control. 4. Weight bear as tolerated in the Cam boot. 5. Discharge home. 6. Follow up in orthopedic clinic in 10-14 days for wound check and suture removal.
[2025-06-12] MEDS: MIDAZOLAM HCL 1 MG/ML inj IVP (09:27)
[2025-06-12] MEDS: SODIUM CHLORIDE 0.9 % (FLUSH) 10 ML SYRINGE IVF (09:28)
--- NOTE | 2025-06-12 09:29 | SUR.PREOP ---
TIME?OUT:?0936 PT/RN/MDA?VERIFICATION?OF?SURGICAL?SITE,?PROCEDURE,?AND?CONSENT OBTAINED?PRIOR?TO?INVASIVE?PROCEDURE. all in agreement
--- NOTE | 2025-06-12 09:38 | W.PM.NB ---
Nerve Block Nerve Block Time Seen by Provider: 09:38 Date Seen: 06/12/25 Type of block requested by surgeon for post-operative analgesia: popliteal Side: right Time out performed: Yes Verification of patient name: Yes Verification of date of : Yes Site marking: site marked Name of person performing procedure: Wicho Continuous monitoring Was continuous monitoring of O2 sat, B/P, alarm security or surveillance monitor, recorded every 15 minutes?: Yes Procedure Checklist: sterile prep, needles and gloves Ultrasound guided. Images saved: Yes Medications given in 5ml increments after negative aspiration: Marcaine %: 0.25 mL: 20 Needle gauge: 20 Patient tolerated procedure well: Yes Additional comments: Needle noted adjacent to nerve Block Charges Block Charge (with Pro Fee): Sciatic Nerve Use of Ultrasound Machine for Block: Yes- US Guidance/pain block
[2025-06-12] MEDS: BUPIVACAINE 0.5 %/EPI 1:200K 30 ML INJECTION (11:10)
--- NOTE | 2025-06-12 11:40 | CRLHL7_ITS ---
For Patients: As a result of the Cures Act, medical imaging exams and procedure reports are released immediately into your electronic medical record. You may view this report before your referring provider. If you have questions, please contact your health care provider. Indication: Right Distal Fibula ORIF Technique: Four fluoroscopic images of the right ankle. Fluoroscopic time 23.9 seconds. IMPRESSION: Fluoroscopic guidance for open reduction internal fixation ORIF distal fibular fracture. Dictated by Umberto Cadena MD @ 06/12/2025 11:52:10 AM (Electronically Signed)
--- NOTE | 2025-06-12 11:40 | P.ANES_ITS ---
Anesthesia Charges Start Date/Time Anesthesia Start Date: 06/12/25 Anesthesia Start Time: 09:47 Stop Date/Time Anesthesia Stop Date: 06/12/25 Anesthesia Stop Time: 11:43 Summary Extremes of Age - Over 70 or under 1: MDA Coding CPT Codes CPT Codes: ANESTH LOWER LEG BONE SURG - 88966 ([id number]) P2 - PATIENT W/MILD SYST DISEASE, QK - SOFTWARE TEST TECHNICIAN 2-4 CNCRNT ANES PROC, QX - IT DATA ARCHITECT SVC W/ MD MED DIRECTION Additional Codes: Summary - Extremes of Age - Over 70 or under 1: MDA ([id number])
--- NOTE | 2025-06-12 11:40 | W.ANESCHARGE ---
Anesthesia Charges Start Date/Time Anesthesia Start Date: 06/12/25 Anesthesia Start Time: 09:47 Stop Date/Time Anesthesia Stop Date: 06/12/25 Anesthesia Stop Time: 11:43 Summary Extremes of Age - Over 70 or under 1: MDA Coding CPT Codes CPT Codes: ANESTH LOWER LEG BONE SURG - 48986 ([id number]) P2 - PATIENT W/MILD SYST DISEASE, QK - CURRICULUM DIRECTOR 2-4 CNCRNT ANES PROC, QX - PORTFOLIO ARCHITECT SVC W/ MD MED DIRECTION Additional Codes: Summary - Extremes of Age - Over 70 or under 1: MDA ([id number])
--- NOTE | 2025-06-12 11:44 | P.ANES_ITS ---
Anesthesia Charges Start Date/Time Anesthesia Start Date: 06/12/25 Anesthesia Start Time: 09:47 Stop Date/Time Anesthesia Stop Date: 06/12/25 Anesthesia Stop Time: 11:43 Summary Extremes of Age - Over 70 or under 1: BOARDER HAND Coding CPT Codes CPT Codes: ANESTH KNEE AREA SURGERY - 78947 ([id number]) P2 - PATIENT W/MILD SYST DISEASE, QK - HOB MILL OPERATOR 2-4 CNCRNT ANES PROC, QX - BOARDER HAND SVC W/ MD MED DIRECTION Additional Codes: Summary - Extremes of Age - Over 70 or under 1: BOARDER HAND ([id number])
--- NOTE | 2025-06-12 11:44 | W.ANESCHARGE ---
Anesthesia Charges Start Date/Time Anesthesia Start Date: 06/12/25 Anesthesia Start Time: 09:47 Stop Date/Time Anesthesia Stop Date: 06/12/25 Anesthesia Stop Time: 11:43 Summary Extremes of Age - Over 70 or under 1: SOCIAL MEDIA CAMPAIGN MANAGER Coding CPT Codes CPT Codes: ANESTH KNEE AREA SURGERY - 82684 ([id number]) P2 - PATIENT W/MILD SYST DISEASE, QK - BRAIDER SETTER 2-4 CNCRNT ANES PROC, QX - SOCIAL MEDIA CAMPAIGN MANAGER SVC W/ MD MED DIRECTION Additional Codes: Summary - Extremes of Age - Over 70 or under 1: SOCIAL MEDIA CAMPAIGN MANAGER ([id number])
--- NOTE | 2025-06-12 13:39 | SUR.PHASEII ---
pt did well. ambulated to BR with walk and RN. voided. tolerated toast and juice. denies pain. right foot boot on. 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
== END 2025-06-12 13:35 | disposition home or self-care (01) ==
LOC: OR 08:24
PROVIDERS: PCP Family Medicine; Visit Provider Orthopaedic Surgery
PROC: (CPT 27792; principal; 2025-06-12 09:45)
DX: S82.61XA Displaced fracture of lateral malleolus of right fibula, initial encounter for closed fracture (principal); G89.18 Other acute postprocedural pain
CPT/HCPCS: 27792; 01392; 01480; 64445; 73600; 76000; 76942; 99100; C1713; J0665; J0690; J1100; J2250; J2371; J2405; J2704; J3010; J3490; J7120